=== PATIENT | female | born 1970 | race Caucasian/White ===

== ENCOUNTER 2016-05-16 18:52 | Emergency (ER) | payer SELFPAY ==
[~2016-05-16] VITALS: Ht 172.7 cm; Wt 68.5 kg
[~2016-05-16 18:52] MED LIST: METH10TA2 PO
[2016-05-16 19:24] VITALS: BP 135/70
--- NOTE | 2016-05-16 19:39 | PHYS DOC ---
Past Medical History Past Medical History: Other Additional Past Medical Histor: scoliosis Past Surgical History: Other Additional Past Surgical Histo: CROSURGERY Alcohol Use: None Drug Use: None Adult General Chief Complaint Chief Complaint: FOOT INJURY PAIN [facility] HPI Patient is a 45 year old female who presents emergency room with a complaint of left foot pain after getting her left foot caught under palate and falling. Patient states this happened approximately 3:30 or 4 PM this afternoon. Patient' s approximate 7 months . She denies having any abdominal pain, pelvic pain, vaginal bleeding or leakage of vaginal fluid. Patient denies any previous injuries to her left foot. She denies any history of bone forming disorders. Review of Systems Review of Systems Constitutional: Denies fever or chills [] Eyes: Denies change in visual acuity, redness, or eye pain [] HENT: Denies nasal congestion or sore throat [] Respiratory: Denies cough or shortness of breath [] Cardiovascular: No additional information not addressed in HPI [] GI: Denies abdominal pain, nausea, vomiting, bloody stools or diarrhea [] : Denies dysuria or hematuria [] Musculoskeletal: Denies back pain or joint pain [] Integument: Denies rash or skin lesions [] Neurologic: Denies headache, focal weakness or sensory changes [] Endocrine: Denies polyuria or polydipsia [] Allergies Allergies Allergies Coded Allergies Type Severity Reaction Last Updated Verified No Known Drug Allergies 04/06/14 No Physical Exam Physical Exam Constitutional: Well developed, well nourished, no acute distress, non-toxic appearance. [] HENT: Normocephalic, atraumatic, bilateral external ears normal, oropharynx moist, no oral exudates, nose normal. [] Eyes: PERRLA, EOMI, conjunctiva normal, no discharge. [] Neck: Normal range of motion, no tenderness, supple, no stridor. [] Cardiovascular:Heart rate regular rhythm, no murmur [] Lungs & Thorax: Bilateral breath sounds clear to auscultation [] Abdomen: Bowel sounds normal, soft, no tenderness, no masses, no pulsatile masses. [] Skin: Warm, dry, no erythema, no rash. [] Back: No tenderness, no CVA tenderness. [] Extremities: Left foot is normal in appearance. There is tenderness to palpation across the dorsum of the left foot approximately mid shaft of the metatarsals. There is no palpable defect, deformity, instability or crepitus. Foot is neurovascularly intact with capillary refill less than 2 seconds in the toes. Neurologic: Alert and oriented X 3, normal motor function, normal sensory function, no focal deficits noted. [] Psychologic: Affect normal, judgement normal, mood normal. [] Current Patient Data Vital Signs Vital Signs Date Time Temp Pulse Resp B/P Pulse Ox O2 Delivery O2 Flow Rate FiO2 05/16/16 19:24 98.1 94 20 135/70 100 Room Air 98.1 EKG EKG [] Radiology/Procedures Radiology/Procedures 3 views patient's left foot were performed with adequate technique. There is no evidence of acute bony injury. Course & Med Decision Making Course & Med Decision Making Pertinent Labs and Imaging studies reviewed. (See chart for details) [] Dragon Disclaimer Dragon Disclaimer This electronic medical record was generated, in whole or in part, using a voice recognition dictation system. Departure Departure Impression: Primary Impression: Contusion Disposition: 01 HOME, SELF-CARE Condition: GOOD Referrals: ANKUR RAYMOND (PCP) Patient Instructions: Contusion, [id number] Additional Instructions: 1. X-rays of your foot here today show no evidence of broken bones or dislocations. 2. You have a bruise and soft tissues in your foot. 3. Review the discharge instructions provided for self-care and reasons to return the emergency department. 4. Follow-up with your silverware etcher if you have any questions or concerns. BARRY CERNA May 16, 2016 19:39
--- NOTE | 2016-05-17 08:16 | RAD ---
EXAM: Left foot 3 views. HISTORY: Fall with left foot pain. COMPARISON: 08/29/2005. FINDINGS: No fractures are identified. Joint spaces and alignment are maintained. There is a small plantar calcaneal spur. IMPRESSION: 1. No fracture.
== END 2016-05-16 20:31 | disposition home or self-care (01) ==
LOC: ER 18:52
DX: O9A.211 Injury, poisoning and certain other consequences of external causes complicating pregnancy, first trimester (principal); S90.32XA Contusion of left foot, initial encounter; Z3A.01 Less than 8 weeks gestation of pregnancy; W23.0XXA Caught, crushed, jammed, or pinched between moving objects, initial encounter; Y93.89 Activity, other specified; Y99.8 Other external cause status; Y92.89 Other specified places as the place of occurrence of the external cause
CPT/HCPCS: 73630; 99284

== ENCOUNTER 2016-06-28 15:30 | Emergency (ER) | payer OTHER ==
[2016-06-28 15:57] VITALS: BP 113/71
[2016-06-28] MEDS ORDERED: HYDR-971 PO (16:28)
[2016-06-28] MEDS ORDERED: AMOX500C PO (16:28)
--- NOTE | 2016-06-28 16:29 | PHYS DOC ---
Past Medical History Past Medical History: Other Additional Past Medical Histor: scoliosis Past Surgical History: Other Additional Past Surgical Histo: CROSURGERY Alcohol Use: None Drug Use: None Adult General Chief Complaint Chief Complaint: DENTAL PROBLEM [facility] HPI Patient is a 45 year old female presents the emergency department stating that she has having left upper dental pain. She states that she's been having this pain for the last 2-3 weeks. She does have a tooth that appears to be decayed down into the gumline at the #14-15 area. The gumline appears to be very red and edematous. No drainage or discharge coming from the site. Patient denies any fever, chills or any nausea vomiting. Patient is 37 weeks . Patient does state that she has been using Orajel for the pain and discomfort which hasn 't been helping that is no longer relieving the pain Review of Systems Review of Systems Constitutional: Denies fever or chills [] Eyes: Denies change in visual acuity, redness, or eye pain [] HENT: Denies nasal congestion or sore throat. C/o dental pain Respiratory: Denies cough or shortness of breath [] Cardiovascular: No additional information not addressed in HPI [] GI: Denies abdominal pain, nausea, vomiting, bloody stools or diarrhea [] : Denies dysuria or hematuria [] Musculoskeletal: Denies back pain or joint pain [] Integument: Denies rash or skin lesions [] Neurologic: Denies headache, focal weakness or sensory changes [] Allergies Allergies Allergies Coded Allergies Type Severity Reaction Last Updated Verified No Known Drug Allergies 04/06/14 No Physical Exam Physical Exam Constitutional: Well developed, well nourished, no acute distress, non-toxic appearance. [] HENT: Normocephalic, atraumatic, bilateral external ears normal, oropharynx moist, no oral exudates, nose normal. Bilateral tympanic membranes appeared normal. Throat with no erythematous drainage or discharge noted. Patient appears to have redness and swelling noted around the number 14 to 15 tooth. No drainage or discharge noted. Eyes: PERRLA, EOMI, conjunctiva normal, no discharge. [] Neck: Normal range of motion, no tenderness, supple, no stridor. [] Cardiovascular:Heart rate regular rhythm, no murmur [] Lungs & Thorax: Bilateral breath sounds clear to auscultation [] Skin: Warm, dry, no erythema, no rash. [] Back: No tenderness Extremities: No tenderness, no cyanosis, no clubbing, ROM intact, no edema. [] Neurologic: Alert and oriented X 3, normal motor function, normal sensory function, no focal deficits noted. [] Psychologic: Affect normal, judgement normal, mood normal. [] Current Patient Data Vital Signs Vital Signs Date Time Temp Pulse Resp B/P Pulse Ox O2 Delivery O2 Flow Rate FiO2 06/28/16 15:57 98.2 104 20 98 Room Air 98.2 EKG EKG [] Radiology/Procedures Radiology/Procedures [] Course & Med Decision Making Course & Med Decision Making Pertinent Labs and Imaging studies reviewed. (See chart for details) Patient will be placed on amoxicillin 1 tablet 4 times a day. She'll also be placed on hydrocodone for severe pain and discomfort. Patient was also instructed to this medication very cautiously she is . She was also instructed that the medication will cause drowsiness do not take any be alert and oriented. Patient was also recommended to follow-up with the dentist within the next week. Patient agrees with discharge instructions treatment regimens and follow-up recommendations. Since symptoms to return back to emergency department been provided. [] Dragon Disclaimer Dragon Disclaimer This electronic medical record was generated, in whole or in part, using a voice recognition dictation system. Departure Departure Impression: Primary Impression: Pain, dental Additional Impression: Dental abscess Disposition: 01 HOME, SELF-CARE Condition: STABLE Referrals: ANKUR RAYMOND (PCP) Patient Instructions: Dental Abscess, Dental Pain, [id number] Additional Instructions: Activity as tolerated. Medication as prescribed. Take the hydrocodone sparingly as your . This medication will cause drowsiness do not take if you need to be alert and oriented. Warm salt water garlges 4 times a day Follow-up with the dentist as soon as possible. Return back to emergency prior signs symptoms of become worse. Scripts Hydrocodone/Apap 5-325 ([place] 5-325 Tablet)1 Each Tablet1 Tab PO PRN Q6HRS PRN PAIN #10 TAB Prov:JUAN DE PAZ PROPELLANT ASSEMBLER 06/28/16 Amoxicillin 500 Mg Capsule1 Cap PO QID #40 CAP Prov:JUAN DE PAZ PROPELLANT ASSEMBLER 4/19/17 Problem Qualifiers JUAN DE PAZ PROPELLANT ASSEMBLER Jun 28, 2016 16:29
== END 2016-06-28 16:44 | disposition home or self-care (01) ==
LOC: ER 15:30
DX: O26.893 Other specified pregnancy related conditions, third trimester (principal); K04.7 Periapical abscess without sinus; Z3A.37 37 weeks gestation of pregnancy
CPT/HCPCS: 99283

== ENCOUNTER 2016-07-01 15:18 | Emergency (ER) | payer OTHER ==
[~2016-07-01 15:18] MED LIST changes: +AMOX500C PO; +HYDR-971 PO
[2016-07-01 16:23] VITALS: BP 114/72
[2016-07-01] MEDS ORDERED: HYDR-971 PO (16:41)
--- NOTE | 2016-07-01 16:41 | PHYS DOC ---
Past Medical History Past Medical History: No Pertinent History Additional Past Medical Histor: scolosis Past Surgical History: No Surgical History Additional Past Surgical Histo: cryotherapy Additional Information: 03/13 ppd Alcohol Use: None Drug Use: None Adult General Chief Complaint Chief Complaint: DENTAL PROBLEM [facility] Patient is a 45 year old female who presents emergency Department today for ongoing dental pain. Patient was seen here 3 days ago for dental pain that been ongoing for approximately a week to week and a half. She was prescribed amoxicillin and [place] 5/325. She states she is continuing to take the amoxicillin. She states she is out of [place]. Patient states that she has an appointment with her field sales manager in 4 days. She states is not Dr. field sales manager or dentist since she was seen here 3 days ago. Patient is in her third trimester . She denies abdominal, pelvic pain, dysuria, hematuria, vaginal bleeding or vaginal discharge. Patient has a well-established history of chronic pain problems as she has been on methadone in the past. Review of Systems Review of Systems Constitutional: Denies fever or chills [] Eyes: Denies change in visual acuity, redness, or eye pain [] HENT: Denies nasal congestion or sore throat [] Respiratory: Denies cough or shortness of breath [] Cardiovascular: No additional information not addressed in HPI [] GI: Denies abdominal pain, nausea, vomiting, bloody stools or diarrhea [] : Denies dysuria or hematuria [] Musculoskeletal: Denies back pain or joint pain [] Integument: Denies rash or skin lesions [] Neurologic: Denies headache, focal weakness or sensory changes [] Endocrine: Denies polyuria or polydipsia [] Allergies Allergies Allergies Coded Allergies Type Severity Reaction Last Updated Verified No Known Drug Allergies 04/06/14 No Physical Exam Physical Exam Constitutional: Well developed, well nourished, no acute distress, non-toxic appearance. Patient is afebrile. HENT: Normocephalic, atraumatic, bilateral external ears normal, oropharynx moist, no oral exudates, nose normal. There is no trismus. There is widespread dental caries and very stages of decay with her remaining teeth the patient has. She has approximately two thirds of her teeth remaining. The area of concern is the second bicuspid and first molar of the left maxillary region. There is minimal gingival inflammation. There is no active purulent drainage or fluctuant pocket suggestive of abscesses. Eyes: PERRLA, EOMI, conjunctiva normal, no discharge. [] Neck: Normal range of motion, no tenderness, supple, no stridor. [] Cardiovascular:Heart rate regular rhythm, no murmur [] Lungs & Thorax: Bilateral breath sounds clear to auscultation [] Abdomen: Bowel sounds normal, soft, no tenderness, no masses, no pulsatile masses. [] Skin: Warm, dry, no erythema, no rash. [] Back: No tenderness, no CVA tenderness. [] Extremities: No tenderness, no cyanosis, no clubbing, ROM intact, no edema. [] Neurologic: Alert and oriented X 3, normal motor function, normal sensory function, no focal deficits noted. [] Psychologic: Affect normal, judgement normal, mood normal. [] Current Patient Data Vital Signs Vital Signs Date Time Temp Pulse Resp B/P Pulse Ox O2 Delivery O2 Flow Rate FiO2 07/01/16 16:23 97.8 99 16 99 Room Air 97.8 EKG EKG [] Radiology/Procedures Radiology/Procedures [] Course & Med Decision Making Course & Med Decision Making Pertinent Labs and Imaging studies reviewed. (See chart for details) [] Dragon Disclaimer Dragon Disclaimer This electronic medical record was generated, in whole or in part, using a voice recognition dictation system. Departure Departure Impression: Primary Impression: Pain, dental Disposition: HOME, SELF-CARE Condition: GOOD Referrals: ANKUR RAYMOND (PCP) Patient Instructions: Dental Pain, [id number] Additional Instructions: 1. Continue to take the amoxicillin as prescribed. Take the [place] for severe pain only. 2. Be sure to follow up with your field sales manager this coming Sunday as planned. Be sure to discuss your 2 visits to the emergency department for the ongoing dental pain. 3. Review the discharge instructions provided for self-care and reasons to return to the emergency department. 4. The dental resource sheet is provided to you for assistance in finding a dental clinic or dental school can best help take care of your dental pain. Scripts Hydrocodone/Apap 5-325 ([place] 5-325 Tablet)1 Each Tablet1 Tab PO PRN Q6HRS PRN PAIN #15 TAB Prov:BARRY CERNA 07/01/16 BARRY CERNA Jul 01, 2016 16:41
== END 2016-07-01 16:49 | disposition home or self-care (01) ==
LOC: ER 15:18
DX: O26.893 Other specified pregnancy related conditions, third trimester (principal); K08.89 Other specified disorders of teeth and supporting structures; G89.29 Other chronic pain; O99.333 Smoking (tobacco) complicating pregnancy, third trimester; Z3A.00 Weeks of gestation of pregnancy not specified
CPT/HCPCS: 99283

== ENCOUNTER 2016-07-23 22:34 | Emergency (ER) | payer OTHER ==
[~2016-07-23] VITALS: Ht 182.9 cm; Wt 69.9 kg
[2016-07-23 23:01] LABS: BILIRUBIN,URINE NEGATIVE (NEG); GLUCOSE,URINE NEGATIVE (NEG); NITRITE,URINE NEGATIVE (NEG); PH,URINE 6.5; PROTEIN,URINE NEGATIVE (NEG-TRACE); UROBILINOGEN,URINE 0.2 mg/dL (0.2 mg/dL)
[2016-07-23 23:10] LABS: BACTERIA,URINE MODERATE /HPF (0-FEW); SQUAMOUS EPITHELIAL CELL,UR MOD /LPF
[2016-07-23 23:34] LABS: BASO # 0.1 x10^3/uL (0.0-0.2); BASO % 2 % (0-3); EOS % 4 % (0-3); HEMATOCRIT 31.5 % (36.0-47.0); HEMOGLOBIN 10.8 g/dL (12.0-15.5); LYMPH # 2.2 x10^3/uL (1.0-4.8); LYMPH % 34 % (24-48); MEAN CORPUSCULAR HEMOGLOBIN 27 pg (25-35); MEAN CORPUSCULAR HGB CONC 34 g/dL (31-37); MEAN CORPUSCULAR VOLUME 79 fL (79-100); MONO % 7 % (0-9); NEUT % 53 % (31-73); PLATELET COUNT 268 x10^3/uL (140-400); RED BLOOD COUNT 4.01 x10^6/uL (3.50-5.40); RED CELL DISTRIBUTION WIDTH 19.4 % (11.5-14.5); WHITE BLOOD COUNT 6.4 x10^3/uL (4.0-11.0)
[2016-07-23 23:44] LABS: CALCIUM 9.4 mg/dL (8.5-10.1); CREATININE 0.7 mg/dL (0.6-1.0); GFR 91.3; POTASSIUM 3.4 mmol/L (3.5-5.1)
[2016-07-23 23:50] LABS: ALBUMIN 2.7 g/dL (3.4-5.0); ALBUMIN/GLOBULIN RATIO 0.8 (1.0-1.7); TOTAL BILIRUBIN 0.1 mg/dL (0.2-1.0); TOTAL PROTEIN 6.2 g/dL (6.4-8.2)
[2016-07-24] MEDS ORDERED: HYDROcodone/APAP 5/325MG 1 TAB TABLET PO ONE
[2016-07-24] MEDS ORDERED: POTASSIUM CHLORIDE 20 MEQ/15 ML ORAL LIQUID. PO ONE (00:30)
[2016-07-24 00:45] VITALS: BP 116/64
[2016-07-24] MEDS ORDERED: CIPR500T PO (00:56)
[2016-07-24] MEDS ORDERED: HYDR-971 PO (00:56)
--- NOTE | 2016-07-24 00:56 | PHYS DOC ---
Past Medical History Past Medical History: Other Additional Past Medical Histor: scolIosis Past Surgical History: No Surgical History Additional Past Surgical Histo: cryotherapy Alcohol Use: None Drug Use: None Adult General Chief Complaint Chief Complaint: MULTIPLE COMPLAINTS HPI HPI Patient is a 45 year old female who presents with back pain & lower extremity swelling. She reports 5 day history of lower back pain, progressive increase in edema bilaterally over the past 3 days. She reports history of chronic back pain & scoliosis, denies recent falls, denies bowel/bladder incontinence/ retention, lower extremity numbness/weakness, saddle anesthesia. She denies calf pain or skin changes to lower extremities, denies chest pain or shortness of breath. Denies fevers/chills, headache, abdominal pain, vomiting, dysuria/ hematuria, reports decreased vaginal bleeding. She is 5 days s/p vaginal delivery by Dr. Pete at [facility]. She reports uneventful , full term induced delivery, no complications. She drank a red bull before she came to the hospital tonight. She was taking norco after hospital discharge but ran out. Review of Systems Review of Systems Constitutional: Denies fever or chills Eyes: Denies change in visual acuity HENT: Denies nasal congestion or sore throat Respiratory: Denies cough or shortness of breath Cardiovascular: Denies chest pain, reports edema GI: Denies abdominal pain, nausea, vomiting, or diarrhea : Denies dysuria or hematuria Musculoskeletal: Reports back pain, denies joint pain Integument: Denies rash or skin lesions Neurologic: Denies headache, focal weakness or sensory changes Current Medications Current Medications Current Medications Medications (Trade) Dose Ordered Sig/Nikhil Start Time Stop Time Status Last Admin Dose Admin Acetaminophen/ Hydrocodone Bitart (Lortab 5/325) 2 tab 1X ONCE 07/24/16 00:00 07/24/16 00:01 DC 07/23/16 23:48 2 TAB Ceftriaxone Sodium 50 ml @ 100 mls/hr 1X ONCE 07/24/16 00:00 07/24/16 00:29 DC 07/23/16 23:48 100 MLS/HR Potassium Chloride (KCl Oral Soln) 40 meq 1X ONCE 07/24/16 00:30 07/24/16 00:31 DC 07/24/16 00:57 40 MEQ Allergies Allergies Allergies Coded Allergies Type Severity Reaction Last Updated Verified No Known Drug Allergies 04/06/14 No Physical Exam Physical Exam Constitutional: Well developed, well nourished, no acute distress, non-toxic appearance. HENT: Normocephalic, atraumatic, bilateral external ears normal, oropharynx moist, nose normal. Eyes: conjunctiva normal, no discharge. Neck: supple, no stridor. Cardiovascular: RRR, no murmurs Lungs & Thorax: LCTAB, no wheezing, no respiratory distress. Abdomen: soft, nontender, no masses or pulsatile masses, nondistended. Skin: Warm, dry, no erythema, no rash. Back: generalized lower back tenderness without CVA tenderness, sacral tenderness present. Extremities: No tenderness, 2+ pitting edema symmetrically to bilateral lower extremities, no calf tenderness, no erythema or warmth Neurologic: Alert and oriented X 3, no focal deficits noted. Psychologic: Affect normal, judgement normal, mood normal. Current Patient Data Vital Signs Vital Signs Date Time Temp Pulse Resp B/P (MAP) Pulse Ox O2 Delivery O2 Flow Rate FiO2 07/24/16 00:45 78 16 116/64 (81) 96 Room Air 07/23/16 22:56 97.9 97.9 Lab Values Laboratory Tests Test 07/23/16 22:40 07/23/16 23:25 Urine Collection Type Unknown Urine Color Yellow Urine Clarity Clear Urine pH 6.5 Urine Specific [place] 1.020 Urine Protein Negative mg/dL (NEG-TRACE) Urine Glucose (UA) Negative mg/dL (NEG) Urine Ketones (Stick) Negative mg/dL (NEG) Urine Blood Large (NEG) Urine Nitrite Negative (NEG) Urine Bilirubin Negative (NEG) Urine Urobilinogen Dipstick 0.2 mg/dL (0.2 mg/dL) Urine Leukocyte Esterase Large (NEG) Urine RBC 6-10 /HPF (0-2) Urine WBC 11-20 /HPF (0-4) Urine Squamous Epithelial Cells Mod /LPF Urine Bacteria Moderate /HPF (0-FEW) Urine Mucus Slight /LPF White Blood Count 6.4 x10^3/uL (4.0-11.0) Red Blood Count 4.01 x10^6/uL (3.50-5.40) Hemoglobin 10.8 g/dL (12.0-15.5) L Hematocrit 31.5 % (36.0-47.0) L Mean Corpuscular Volume 79 fL (79-100) Mean Corpuscular Hemoglobin 27 pg (25-35) Mean Corpuscular Hemoglobin Concent 34 g/dL (31-37) Red Cell Distribution Width 19.4 % (11.5-14.5) H Platelet Count 268 x10^3/uL (140-400) Neutrophils (%) (Auto) 53 % (31-73) Lymphocytes (%) (Auto) 34 % (24-48) Monocytes (%) (Auto) 7 % (0-9) Eosinophils (%) (Auto) 4 % (0-3) H Basophils (%) (Auto) 2 % (0-3) Neutrophils # (Auto) 3.4 x10^3uL (1.8-7.7) Lymphocytes # (Auto) 2.2 x10^3/uL (1.0-4.8) Monocytes # (Auto) 0.5 x10^3/uL (0.0-1.1) Eosinophils # (Auto) 0.2 x10^3/uL (0.0-0.7) Basophils # (Auto) 0.1 x10^3/uL (0.0-0.2) Prothrombin Time 13.0 SEC (11.7-14.0) Prothrombin Time INR 1.0 (0.8-1.1) PTT 28 SEC (24-38) Sodium Level 141 mmol/L (136-145) Potassium Level 3.4 mmol/L (3.5-5.1) L Chloride Level 105 mmol/L (98-107) Carbon Dioxide Level 25 mmol/L (21-32) Anion Gap 11 (6-14) Blood Urea Nitrogen 15 mg/dL (7-20) Creatinine 0.7 mg/dL (0.6-1.0) Estimated GFR (Cockcroft-Gault) 91.3 BUN/Creatinine Ratio 21 (6-20) H Glucose Level 113 mg/dL (70-99) H Calcium Level 9.4 mg/dL (8.5-10.1) Total Bilirubin 0.1 mg/dL (0.2-1.0) L Aspartate Amino Transferase (AST) 23 U/L (15-37) Alanine Aminotransferase (ALT) 27 U/L (14-59) Alkaline Phosphatase 90 U/L (46-116) Total Protein 6.2 g/dL (6.4-8.2) L Albumin 2.7 g/dL (3.4-5.0) L Albumin/Globulin Ratio 0.8 (1.0-1.7) L Laboratory Tests 07/23/16 23:25 Laboratory Tests 07/23/16 23:25 EKG EKG [] Radiology/Procedures Radiology/Procedures [] Course & Med Decision Making Course & Med Decision Making Pertinent Labs and Imaging studies reviewed. (See chart for details) Patient presents with lower extremity edema and back pain. She states the back pain is typical of her chronic pain and she just ran out of pain medication. No red flag symptoms present. Her pain improved with [place] here. She does have bilateral lower extremity edema, symptoms not suggesting DVT at this time although certainly she is at risk with recent delivery. Otherwise no symptoms of preeclampsia. Blood pressure was initially elevated upon arrival, possibly due to recent ingestion of energy drink. Improved with repeat measurements here and she had no recurrence of hypertension. She was found to have urinary tract infection. With lower back pain will give treatment for 7 days with Cipro. Recommended to elevate her legs. I attempted to contact Dr. Pete, her OB doctor, but did not receive a call back. Discussed at length with the patient possible concerning causes of swelling including preeclampsia and DVT. Encouraged her to call OB clinic in the morning to schedule an appointment within 2 days. Return to the emergency department for severe headache, vision changes, unilateral calf pain or worsening swelling, chest pain, shortness of breath, high fever, severe abdominal pain or flank pain, uncontrolled vomiting, any otherwise worsening condition. Discharged home today in stable condition. [] Dragon Disclaimer Dragon Disclaimer This electronic medical record was generated, in whole or in part, using a voice recognition dictation system. Departure Departure Impression: Primary Impression: Urinary tract infection Additional Impressions: Back pain Edema Disposition: 01 HOME, SELF-CARE Condition: STABLE Referrals: ANKUR PETE (PCP) Patient Instructions: Back Pain, Adult, [id number], Edema, [id number], Urinary Tract Infection, [id number] Additional Instructions: You were seen in the emergency department today for leg swelling and back pain. You have a urinary tract infection. Please take the prescribed antibiotic and drink fluids to stay hydrated. Take pain medication as needed. No drinking alcohol or driving while taking this medication. Keep legs elevated to reduce swelling. Your blood pressure was elevated initially when he arrived, and improved on recheck here. It is very important to see your OB doctor this week as high blood pressure can indicate serious problems shortly after delivering a baby. Please make an appointment within 2 days. Return to the emergency department for severe headache, chest pain, difficulty breathing, increased leg swelling or calf pain, high fever, uncontrolled vomiting, severe abdominal pain or back pain, any otherwise worsening condition. Scripts Hydrocodone/Apap 5-325 (NORCO 5-325 TABLET) 1 Each Tablet 1 TAB PO PRN Q6HRS Y for PAIN, #10 TAB 0 Refills Prov: JUSTINE FLOYD MD 07/24/16 Ciprofloxacin Hcl (CIPROFLOXACIN HCL) 500 Mg Tablet 1 TAB PO BID, #14 TAB Prov: JUSTINE FLOYD MD 07/24/16 Problem Qualifiers JUSTINE FLOYD MD July 24, 2016 00:56
== END 2016-07-24 01:13 | disposition home or self-care (01) ==
LOC: ER 22:34
DX: N39.0 Urinary tract infection, site not specified (principal); R60.9 Edema, unspecified; M54.5 Low back pain; M41.9 Scoliosis, unspecified
CPT/HCPCS: 36415; 80053; 81001; 85027; 85610; 85730; 87086; 96365; 99284; J0690

== ENCOUNTER 2016-08-05 22:38 | Emergency (ER) | payer OTHER ==
[~2016-08-05] VITALS: Ht 172.7 cm; Wt 69.9 kg
[~2016-08-05 22:38] MED LIST changes: +CIPR500T PO
[2016-08-05 22:45] VITALS: BP 142/86
[2016-08-05 23:11] LABS: BILIRUBIN,URINE NEGATIVE (NEG); GLUCOSE,URINE NEGATIVE (NEG); NITRITE,URINE NEGATIVE (NEG); PROTEIN,URINE NEGATIVE (NEG-TRACE); UROBILINOGEN,URINE 0.2 mg/dL (0.2 mg/dL)
--- NOTE | 2016-08-05 23:13 | PHYS DOC ---
Past Medical History Past Medical History: Other Additional Past Medical Histor: scolIosis Past Surgical History: No Surgical History Additional Past Surgical Histo: cryotherapy Additional Information: 0.5 PPD Alcohol Use: None Drug Use: None Adult General Chief Complaint Chief Complaint: PAIN CONTROL [facility] HPI Patient is a 45 year old female who presents with complaint of low back pain. Patient states she has history of chronic low back pain. Patient has had multiple visits to the emergency department for similar symptoms. Patient states that her symptoms became exacerbated over the past 2 days. The patient states that she has been taking hydrocodone and ibuprofen for her pain. Patient states that she took her last hydrocodone earlier this morning. Patient states that her pain is currently 8 out of 10. Patient states that the pain worsens with movement. Patient denies radiation of pain into her left lower extremities. Patient denies loss of bowel or bladder control and denies loss of feeling in her groin. Review of Systems Review of Systems Constitutional: Denies fever or chills [] Eyes: Denies change in visual acuity, redness, or eye pain [] HENT: Denies nasal congestion or sore throat [] Respiratory: Denies cough or shortness of breath [] Cardiovascular: No additional information not addressed in HPI [] GI: Denies abdominal pain, nausea, vomiting, bloody stools or diarrhea [] : Denies dysuria or hematuria [] Musculoskeletal: Back pain [] Integument: Denies rash or skin lesions [] Neurologic: Denies headache, focal weakness or sensory changes [] Current Medications Current Medications Current Medications Medications (Trade) Dose Ordered Sig/Nikhil Start Time Stop Time Status Last Admin Dose Admin Acetaminophen/ Hydrocodone Bitart (Lortab 7.5/325) 1 tab 1X ONCE 08/05/16 23:15 08/05/16 23:16 DC 08/05/16 23:08 1 TAB Cyclobenzaprine HCl (Flexeril) 10 mg 1X ONCE 08/05/16 23:15 08/05/16 23:16 DC 08/05/16 23:08 10 MG Ibuprofen (Motrin) 800 mg 1X ONCE 08/05/16 23:15 08/05/16 23:16 DC 08/05/16 23:07 800 MG Allergies Allergies Allergies Coded Allergies Type Severity Reaction Last Updated Verified No Known Drug Allergies 04/06/14 No Physical Exam Physical Exam Constitutional: Alert, afebrile, appears in mild to moderate discomfort. [] HENT: Normocephalic, atraumatic, bilateral external ears normal, oropharynx moist, no oral exudates, nose normal. [] Eyes: PERRLA, EOMI, conjunctiva normal, no discharge. [] Neck: Normal range of motion, no tenderness, supple, no stridor. [] Cardiovascular:Heart rate regular rhythm, no murmur [] Lungs & Thorax: Bilateral breath sounds clear to auscultation [] Abdomen: Bowel sounds normal, soft, no tenderness, no masses, no pulsatile masses. [] Skin: Warm, dry, no erythema, no rash. [] Back: Bilateral lower lumbar paraspinous muscle tenderness to palpation, no midline tenderness, no flank ecchymosis. [] Extremities: No tenderness, no cyanosis, no clubbing, ROM intact, no edema. [] Neurologic: Alert and oriented X 3, normal motor function, normal sensory function, no focal deficits noted. [] Current Patient Data Vital Signs Vital Signs Date Time Temp Pulse Resp B/P (MAP) Pulse Ox O2 Delivery O2 Flow Rate FiO2 08/05/16 23:08 18 100 Room Air 08/05/16 22:45 98.0 78 98.0 Lab Values Laboratory Tests Test 08/05/16 22:55 Urine Collection Type Unknown Urine Color Yellow Urine Clarity Clear Urine pH 7.0 Urine Specific [place] 1.015 Urine Protein Negative mg/dL (NEG-TRACE) Urine Glucose (UA) Negative mg/dL (NEG) Urine Ketones (Stick) Negative mg/dL (NEG) Urine Blood Large (NEG) Urine Nitrite Negative (NEG) Urine Bilirubin Negative (NEG) Urine Urobilinogen Dipstick 0.2 mg/dL (0.2 mg/dL) Urine Leukocyte Esterase Large (NEG) Urine RBC >40 /HPF (0-2) Urine WBC 11-20 /HPF (0-4) Urine Squamous Epithelial Cells Few /LPF Urine Bacteria Few /HPF (0-FEW) EKG EKG Not performed [] Radiology/Procedures Radiology/Procedures Not performed [] Course & Med Decision Making Course & Med Decision Making Pertinent Labs and Imaging studies reviewed. (See chart for details) The patient was given hydrocodone, Flexeril, and ibuprofen in the emergency department. After speaking with the patient, I explained that due to multiple prescriptions being written in the past month for hydrocodone from the emergency department, I would not be able to write any further prescriptions until the patient has been seen by her primary doctor. Due to the presence of chronic back pain, I am providing referral for the patient to see Dr. Elliot Brayn of the pain management clinic and recommended follow-up in the next 1-2 weeks. Advised patient to return to emergency department for any worsening symptoms. Patient voiced understanding and in agreement with treatment plan. Dragon Disclaimer Dragon Disclaimer This electronic medical record was generated, in whole or in part, using a voice recognition dictation system. Departure Departure Impression: Primary Impression: Acute exacerbation of chronic low back pain Disposition: HOME, SELF-CARE Condition: IMPROVED Referrals: ANKUR RAYMOND (PCP) ELLIOT BRYAN MD Patient Instructions: Chronic Back Pain Additional Instructions: Follow-up with your primary doctor in 1 week. It is recommended that you schedule follow-up with Dr. Elliot Bryan of the pain management clinic in 1-2 weeks for further evaluation and treatment of your chronic back pain. Return to the emergency department for any worsening symptoms. Scripts Cyclobenzaprine Hcl (CYCLOBENZAPRINE HCL) 10 Mg Tablet 1 TAB PO TID Y for MUSCLE PAIN, #30 TAB Prov: KULDEEP LAI MD 08/05/16 KULDEEP LAI MD August 05, 2016 23:13
[2016-08-05] MEDS ORDERED: CYCLOBENZAPRINE 10 MG TABLET. PO ONE (23:15)
[2016-08-05] MEDS ORDERED: HYDROcodone/APAP 7.5/325MG 1 TAB TABLET PO ONE (23:15)
[2016-08-05] MEDS ORDERED: IBUPROFEN 800 MG TABLET. PO ONE (23:15)
[2016-08-05 23:20] LABS: BACTERIA,URINE FEW /HPF (0-FEW); RBC,URINE >40 /HPF (0-2); SQUAMOUS EPITHELIAL CELL,UR FEW /LPF
[2016-08-05] MEDS ORDERED: CYCL10TA2 PO (23:51)
== END 2016-08-05 23:53 | disposition home or self-care (01) ==
LOC: ER 22:42
DX: G89.29 Other chronic pain (principal); M54.5 Low back pain; M41.9 Scoliosis, unspecified; F17.200 Nicotine dependence, unspecified, uncomplicated
CPT/HCPCS: 81001; 87086; 99284

== ENCOUNTER 2017-01-28 22:44 | Emergency (ER) | payer SELFPAY ==
[~2017-01-28] VITALS: Ht 172.7 cm; Wt 60.8 kg
[~2017-01-28 22:44] MED LIST changes: +CYCL10TA2 PO
[2017-01-29] MEDS ORDERED: IV NORMAL SALINE 1000ML BAG 1,000 ML IV ONE (00:30)
[2017-01-29 00:34] LABS: BILIRUBIN,URINE NEGATIVE (NEG); GLUCOSE,URINE NEGATIVE (NEG); NITRITE,URINE NEGATIVE (NEG); PROTEIN,URINE NEGATIVE (NEG-TRACE); UROBILINOGEN,URINE 0.2 mg/dL (0.2 mg/dL)
[2017-01-29 00:35] LABS: BASO # 0.1 x10^3/uL (0.0-0.2); BASO % 1 % (0-3); EOS % 5 % (0-3); HEMATOCRIT 40.2 % (36.0-47.0); HEMOGLOBIN 13.1 g/dL (12.0-15.5); LYMPH # 2.7 x10^3/uL (1.0-4.8); LYMPH % 44 % (24-48); MEAN CORPUSCULAR HEMOGLOBIN 27 pg (25-35); MEAN CORPUSCULAR HGB CONC 33 g/dL (31-37); MEAN CORPUSCULAR VOLUME 83 fL (79-100); MONO % 9 % (0-9); NEUT % 42 % (31-73); PLATELET COUNT 293 x10^3/uL (140-400); RED BLOOD COUNT 4.87 x10^6/uL (3.50-5.40); RED CELL DISTRIBUTION WIDTH 15.4 % (11.5-14.5); WHITE BLOOD COUNT 6.2 x10^3/uL (4.0-11.0)
[2017-01-29 00:41] LABS: CALCIUM 9.4 mg/dL (8.5-10.1); CREATININE 0.9 mg/dL (0.6-1.0); POTASSIUM 3.3 mmol/L (3.5-5.1)
[2017-01-29 00:43] LABS: BACTERIA,URINE FEW /HPF (0-FEW); SQUAMOUS EPITHELIAL CELL,UR MOD /LPF
[2017-01-29 00:47] LABS: ALBUMIN/GLOBULIN RATIO 1.1 (1.0-1.7); TOTAL BILIRUBIN 0.2 mg/dL (0.2-1.0); TOTAL PROTEIN 7.7 g/dL (6.4-8.2)
[2017-01-29 01:32] VITALS: BP 137/73
--- NOTE | 2017-01-29 01:41 | PHYS DOC ---
Past Medical History Past Medical History: Other Additional Past Medical Histor: scolIosis Past Surgical History: No Surgical History Additional Past Surgical Histo: cryotherapy Alcohol Use: None Drug Use: None Adult General Chief Complaint Chief Complaint: MULTIPLE COMPLAINTS HPI HPI Patient is a 46 year old female who presents here today with multiple complaints including generalized shaking, trembling, feeling dizzy, patient reports the symptom and on since Sunday. She reports that occurred today between 2 PM and 5 PM but is currently asymptomatic. She reports yesterday she had the symptoms associated nausea and vomiting. Patient reports that she has a history significant for anxiety no hypertension diabetes lung liver or kidney problems. Patient allergic medications. Patient reports she smokes no alcohol or drugs. Patient reports she drinks approximately 3 cans red blood which is baseline be contributing to it. Patient reports that she finished work at around 7 PM and started feeling some discomfort to her right neck area was concerned came to the ER. Patient denies any exertional component to the discomfort to her jaw. Patient has any radiating pain. Patient has any shortness of breath or diaphoresis. Patient is currently a symptomatically. Review of systems: Constitutional: Denies fever or chills Eyes: Denies change in visual acuity, redness, or eye pain HENT: Denies nasal congestion or sore throat Respiratory: Denies cough or shortness of breath All other systems were reviewed and found to be within normal limits, except as documented in this note. Physical exam: Constitutional: Well developed, well nourished, no acute distress, non-toxic appearance. HENT: Normocephalic,bilateral external ears normal, oropharynx moist, no oral exudates, nose normal. Eyes: PERRLA, EOMI, conjunctiva normal, no discharge. Neck: Normal range of motion, no tenderness, supple, no stridor. Cardiovascular:Heart rate regular rhythm, no murmur Lungs & Thorax: Bilateral breath sounds clear to auscultation Abdomen: Bowel sounds normal, soft, no tenderness, no masses, no pulsatile masses. Skin: Warm, dry, no erythema, no rash. Back: No tenderness, no CVA tenderness. Extremities: No tenderness, no cyanosis, no clubbing, ROM intact, no edema. Neurologic: Alert and oriented X 3, normal motor function, normal sensory function, no focal deficits noted. Psychologic: Affect normal, judgement normal, mood normal. EKG: Normal sinus rhythm at a heart rate of [address]-T wave abnormalities. No evidence of STEMI. As interpreted by ER physician. X-ray: Normal heart size, no infiltrates or effusions, as interpreted by ER physician. He, CMP, troponin, UA all within normal limits. Assessment and plan: 46-year-old female who presents here today with multiple vague complaints including generalized shaking trembling dizziness and been intermittent since Sunday. Patient reports she drinks. Patient thinks that this might be contributing to her sensation of anxiety. Patient's ER workup is been unremarkable for any acute pathology including NV, PE, pneumonia, diabetes, infection. Patient be discharged home in stable condition given her ER workup is been normal. Patient's EKG chest x-ray been normal. Patient's CBC CMP troponin been within normal limits. Reports also been discussed with the patient as well as plan to discharge her to home. Current Medications Current Medications Current Medications Medications (Trade) Dose Ordered Sig/Nikhil Start Time Stop Time Status Last Admin Dose Admin Sodium Chloride 1,000 ml @ 1,000 mls/hr 1X ONCE 01/29/17 00:30 01/29/17 01:29 DC 01/29/17 00:36 1,000 MLS/HR Allergies Allergies Allergies Coded Allergies Type Severity Reaction Last Updated Verified No Known Drug Allergies 04/06/14 No Current Patient Data Vital Signs Vital Signs Date Time Temp Pulse Resp B/P (MAP) Pulse Ox O2 Delivery O2 Flow Rate FiO2 01/29/17 01:02 99 18 135/83 (100) 98 Room Air 01/28/17 23:00 98.1 98.1 Lab Values Laboratory Tests Test 01/28/17 23:45 01/29/17 00:05 POC Urine HCG, Qualitative Hcg negative (Negative) White Blood Count 6.2 x10^3/uL (4.0-11.0) Red Blood Count 4.87 x10^6/uL (3.50-5.40) Hemoglobin 13.1 g/dL (12.0-15.5) Hematocrit 40.2 % (36.0-47.0) Mean Corpuscular Volume 83 fL (79-100) Mean Corpuscular Hemoglobin 27 pg (25-35) Mean Corpuscular Hemoglobin Concent 33 g/dL (31-37) Red Cell Distribution Width 15.4 % (11.5-14.5) H Platelet Count 293 x10^3/uL (140-400) Neutrophils (%) (Auto) 42 % (31-73) Lymphocytes (%) (Auto) 44 % (24-48) Monocytes (%) (Auto) 9 % (0-9) Eosinophils (%) (Auto) 5 % (0-3) H Basophils (%) (Auto) 1 % (0-3) Neutrophils # (Auto) 2.6 x10^3uL (1.8-7.7) Lymphocytes # (Auto) 2.7 x10^3/uL (1.0-4.8) Monocytes # (Auto) 0.5 x10^3/uL (0.0-1.1) Eosinophils # (Auto) 0.3 x10^3/uL (0.0-0.7) Basophils # (Auto) 0.1 x10^3/uL (0.0-0.2) Urine Collection Type Unknown Urine Color Yellow Urine Clarity Clear Urine pH 7.0 Urine Specific [place] 1.015 Urine Protein Negative mg/dL (NEG-TRACE) Urine Glucose (UA) Negative mg/dL (NEG) Urine Ketones (Stick) Negative mg/dL (NEG) Urine Blood Small (NEG) Urine Nitrite Negative (NEG) Urine Bilirubin Negative (NEG) Urine Urobilinogen Dipstick 0.2 mg/dL (0.2 mg/dL) Urine Leukocyte Esterase Negative (NEG) Urine RBC 1-2 /HPF (0-2) Urine WBC 1-4 /HPF (0-4) Urine Squamous Epithelial Cells Mod /LPF Urine Bacteria Few /HPF (0-FEW) Urine Mucus Slight /LPF Sodium Level 141 mmol/L (136-145) Potassium Level 3.3 mmol/L (3.5-5.1) L Chloride Level 102 mmol/L (98-107) Carbon Dioxide Level 30 mmol/L (21-32) Anion Gap 9 (6-14) Blood Urea Nitrogen 13 mg/dL (7-20) Creatinine 0.9 mg/dL (0.6-1.0) Estimated GFR (Cockcroft-Gault) 68.0 BUN/Creatinine Ratio 14 (6-20) Glucose Level 88 mg/dL (70-99) Calcium Level 9.4 mg/dL (8.5-10.1) Total Bilirubin 0.2 mg/dL (0.2-1.0) Aspartate Amino Transferase (AST) 23 U/L (15-37) Alanine Aminotransferase (ALT) 27 U/L (14-59) Alkaline Phosphatase 51 U/L (46-116) Troponin I Quantitative < 0.017 ng/mL (0.000-0.055) Total Protein 7.7 g/dL (6.4-8.2) Albumin 4.0 g/dL (3.4-5.0) Albumin/Globulin Ratio 1.1 (1.0-1.7) Laboratory Tests 01/29/17 00:05 Laboratory Tests 01/29/17 00:05 EKG EKG [] Radiology/Procedures Radiology/Procedures [] Course & Med Decision Making Course & Med Decision Making Pertinent Labs and Imaging studies reviewed. (See chart for details) [] Dragon Disclaimer Dragon Disclaimer This electronic medical record was generated, in whole or in part, using a voice recognition dictation system. Departure Departure Impression: Primary Impression: Dizziness Additional Impression: Anxiety Disposition: 01 HOME, SELF-CARE Condition: IMPROVED Referrals: NO PCP (PCP) Patient Instructions: Anxiety and Panic Attacks, Palpitations Problem Qualifiers BETINA MONSIVAIS MD Jan 29, 2017 01:41
--- NOTE | 2017-01-29 06:08 | EKG ---
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
--- NOTE | 2017-01-29 08:14 | RAD ---
EXAM: Chest 2 views. HISTORY: Dizziness. COMPARISON: 06/07/2014. FINDINGS: Frontal and lateral views of the chest are obtained. Hyperinflation is consistent with chronic obstructive pulmonary disease. There is mild atelectasis or scarring in the bases. There is no pneumothorax or pleural effusion. The heart is not enlarged. There is a mild to moderate S-shaped thoracic scoliosis. A chronic left posterior inferior rib fractures noted. IMPRESSION: 1. Chronic obstructive pulmonary disease. No confluent infiltrates.
== END 2017-01-29 01:45 | disposition home or self-care (01) ==
LOC: ER 22:44
DX: R42 Dizziness and giddiness (principal); F41.9 Anxiety disorder, unspecified; R11.2 Nausea with vomiting, unspecified; J44.9 Chronic obstructive pulmonary disease, unspecified
CPT/HCPCS: 36415; 71020; 80053; 81001; 81025; 84484; 85025; 93005; 96360; 99285; J7030

== ENCOUNTER 2017-07-04 09:39 | Emergency (ER) | payer OTHER | END 2017-07-04 10:19 | disposition home or self-care (01) | LOC: ER 09:39 | DX: S06.0X0A Concussion without loss of consciousness, initial encounter (principal); S90.31XA Contusion of right foot, initial encounter; W18.09XA Striking against other object with subsequent fall, initial encounter; Y93.89 Activity, other specified; Y99.8 Other external cause status; Y92.89 Other specified places as the place of occurrence of the external cause | CPT/HCPCS: 99281 ==

== ENCOUNTER 2017-09-21 10:57 | Emergency (ER) | payer SELFPAY, OTHER ==
[2017-09-21 11:17] LABS: URINE HCG POC HCG POSITIVE (Negative)
[2017-09-21 11:44] LABS: ADD MAN DIFF? NO
[2017-09-21 11:46] LABS: BASO # 0.1 x10^3/uL (0.0-0.2); BASO % 1 % (0-3); EOS # 0.1 x10^3/uL (0.0-0.7); EOS % 1 % (0-3); HEMATOCRIT 34.8 % (36.0-47.0); HEMOGLOBIN 11.6 g/dL (12.0-15.5); LYMPH # 2.3 x10^3/uL (1.0-4.8); LYMPH % 28 % (24-48); MEAN CORPUSCULAR HEMOGLOBIN 26 pg (25-35); MEAN CORPUSCULAR HGB CONC 33 g/dL (31-37); MEAN CORPUSCULAR VOLUME 77 fL (79-100); MONO # 0.5 x10^3/uL (0.0-1.1); MONO % 7 % (0-9); NEUT % 62 % (31-73); PLATELET COUNT 283 x10^3/uL (140-400); RED BLOOD COUNT 4.51 x10^6/uL (3.50-5.40); RED CELL DISTRIBUTION WIDTH 16.5 % (11.5-14.5)
[2017-09-21 11:52] LABS: BILIRUBIN,URINE NEGATIVE (NEG); COLOR,URINE YELLOW; GLUCOSE,URINE NEGATIVE (NEG); NITRITE,URINE NEGATIVE (NEG); PROTEIN,URINE NEGATIVE (NEG-TRACE); UROBILINOGEN,URINE 0.2 mg/dL (0.2 mg/dL)
[2017-09-21 11:54] LABS: ANION GAP 8 (6-14); BLOOD UREA NITROGEN 10 mg/dL (7-20); BUN/CREATININE RATIO 10 (6-20); CALCIUM 8.4 mg/dL (8.5-10.1); CARBON DIOXIDE 28 mmol/L (21-32); CHLORIDE 106 mmol/L (98-107); GLUCOSE 87 mg/dL (70-99); SODIUM 142 mmol/L (136-145)
[2017-09-21 11:59] LABS: ALBUMIN 3.5 g/dL (3.4-5.0); ALBUMIN/GLOBULIN RATIO 1.1 (1.0-1.7); ALK PHOS 46 U/L (46-116); ALT (SGPT) 24 U/L (14-59); AST (SGOT) 16 U/L (15-37); TOTAL BILIRUBIN 0.2 mg/dL (0.2-1.0); TOTAL PROTEIN 6.6 g/dL (6.4-8.2)
[2017-09-21 12:04] LABS: BACTERIA,URINE FEW /HPF (0-FEW); RBC,URINE OCC /HPF (0-2); SQUAMOUS EPITHELIAL CELL,UR MOD /LPF; WBC,URINE >40 /HPF (0-4)
[2017-09-21 12:05] LABS: CLARITY,URINE HAZY
[2017-09-21] MEDS: ACETAMINOPHEN 500 MG TABLET PO (13:00)
== END 2017-09-21 13:02 | disposition home or self-care (01) ==
LOC: ER 10:57
DX: O23.41 Unspecified infection of urinary tract in pregnancy, first trimester (principal); O20.8 Other hemorrhage in early pregnancy; Z3A.01 Less than 8 weeks gestation of pregnancy
CPT/HCPCS: 36415; 76801; 76817; 80053; 81001; 81025; 84702; 85025; 87086; 99285-25

== ENCOUNTER 2017-10-13 01:22 | Emergency (ER) | payer OTHER | END 2017-10-13 02:10 | disposition left against medical advice (07) | LOC: ER 02:10 | DX: L02.01 Cutaneous abscess of face (principal) ==

== ENCOUNTER 2017-10-13 15:41 | Emergency (ER) | payer OTHER | END 2017-10-13 16:31 | disposition home or self-care (01) | LOC: ER 16:31 | DX: O26.891 Other specified pregnancy related conditions, first trimester (principal); O99.711 Diseases of the skin and subcutaneous tissue complicating pregnancy, first trimester (principal); K04.7 Periapical abscess without sinus; Z3A.09 9 weeks gestation of pregnancy | CPT/HCPCS: 99283 ==

== ENCOUNTER 2017-10-29 14:03 | Emergency (ER) | payer OTHER ==
[~2017-10-29] VITALS: Ht 172.7 cm; Wt 61.7 kg
[~2017-10-29 14:03] MED LIST changes: +ACET-704 PO; +AMOX875T PO; +SULF1TAB24 PO
[2017-10-29 14:55] LABS: BILIRUBIN,URINE NEGATIVE (NEG); CLARITY,URINE CLEAR; COLOR,URINE YELLOW; NITRITE,URINE NEGATIVE (NEG); PROTEIN,URINE NEGATIVE (NEG-TRACE); UROBILINOGEN,URINE 0.2 mg/dL (0.2 mg/dL)
[2017-10-29 15:01] LABS: BACTERIA,URINE 0 /HPF (0-FEW); RBC,URINE 0 /HPF (0-2); SQUAMOUS EPITHELIAL CELL,UR MOD /LPF; WBC,URINE 0 /HPF (0-4)
--- NOTE | 2017-10-29 17:33 | RAD ---
Indication:spotting . Vaginal bleeding in . TECHNIQUE: Grayscale, color Doppler and spectral waveform images of the pelvis obtained. COMPARISON: Previous ultrasound from 09/21/2017 FINDINGS: The uterus measures 8.1 x 4.7 x 6.1 cm (longitudinal, AP, transverse). Elongated anechoic lesion is seen in the upper endometrium measuring 1.8 x 0.6 x 0.9 cm. Cervix is closed. No endometrial vascularity. The endometrial thickness measures 9 mm. The left ovary measures 1.5 x 1.7 x 2.5 cm with a 1.5 x 1.3 x 1.3 cm anechoic lesion. Left ovary demonstrates evidence of blood flow. Left parametrial collaterals are seen. The right kidney measures 2.1 x 1.8 x 1.8 cm and demonstrates evidence of blood flow. IMPRESSION: 1. Anechoic structure in the upper endometrium may represent an abnormal shaped gestation sac or small amount of endometrial cavity fluid. If this structure represents a gestation sac than the estimated gestation age is approximately 5 weeks 6 days but should be 11 weeks 6 day from prior ultrasound. Follow-up ultrasound recommended. 2. Bilateral ovaries demonstrate evidence of blood flow with left ovarian lesion likely corpus luteal cyst of . Differential diagnoses includes failed first trimester , ectopic or complete spontaneous . Correlate with beta-hCG. Electronically signed by: Dick Broderick DO (10/29/2017 5:29 PM) [facility]
[2017-10-29] MEDS ORDERED: HYDR-971 PO (17:57)
--- NOTE | 2017-10-29 17:59 | PHYS DOC ---
Past Medical History Past Medical History: Other Additional Past Medical Histor: SCOLIOSIS Past Surgical History: Other Additional Past Surgical Histo: CRYOTHERAPY Alcohol Use: None Drug Use: None Adult General Chief Complaint Chief Complaint: VAGINAL BLEEDING HPI HPI Patient is a 47 year old [f__sex] who presents with [] Review of Systems Review of Systems Constitutional: Denies fever or chills [] Eyes: Denies change in visual acuity, redness, or eye pain [] HENT: Denies nasal congestion or sore throat [] Respiratory: Denies cough or shortness of breath [] Cardiovascular: No additional information not addressed in HPI [] GI: Denies abdominal pain, nausea, vomiting, bloody stools or diarrhea [] : Denies dysuria or hematuria [] Musculoskeletal: Denies back pain or joint pain [] Integument: Denies rash or skin lesions [] Neurologic: Denies headache, focal weakness or sensory changes [] Endocrine: Denies polyuria or polydipsia [] All other systems were reviewed and found to be within normal limits, except as documented in this note. Allergies Allergies Allergies Coded Allergies Type Severity Reaction Last Updated Verified No Known Drug Allergies 04/06/14 No Physical Exam Physical Exam Constitutional: Well developed, well nourished, no acute distress, non-toxic appearance. [] HENT: Normocephalic, atraumatic, bilateral external ears normal, oropharynx moist, no oral exudates, nose normal. [] Eyes: PERRLA, EOMI, conjunctiva normal, no discharge. [] Neck: Normal range of motion, no tenderness, supple, no stridor. [] Cardiovascular:Heart rate regular rhythm, no murmur [] Lungs & Thorax: Bilateral breath sounds clear to auscultation [] Abdomen: Bowel sounds normal, soft, no tenderness, no masses, no pulsatile masses. [] Skin: Warm, dry, no erythema, no rash. [] Back: No tenderness, no CVA tenderness. [] Extremities: No tenderness, no cyanosis, no clubbing, ROM intact, no edema. [] Neurologic: Alert and oriented X 3, normal motor function, normal sensory function, no focal deficits noted. [] Psychologic: Affect normal, judgement normal, mood normal. [] Current Patient Data Vital Signs Vital Signs Date Time Temp Pulse Resp B/P (MAP) Pulse Ox O2 Delivery O2 Flow Rate FiO2 10/29/17 16:25 80 18 114/75 (88) 97 10/29/17 14:40 98.6 Room Air 98.6 Lab Values Laboratory Tests Test 10/29/17 14:43 10/29/17 14:46 10/29/17 16:10 Urine Collection Type Unknown Urine Color Yellow Urine Clarity Clear Urine pH 7.0 Urine Specific [place] 1.010 Urine Protein Negative mg/dL (NEG-TRACE) Urine Glucose (UA) Negative mg/dL (NEG) Urine Ketones (Stick) Negative mg/dL (NEG) Urine Blood Trace (NEG) Urine Nitrite Negative (NEG) Urine Bilirubin Negative (NEG) Urine Urobilinogen Dipstick 0.2 mg/dL (0.2 mg/dL) Urine Leukocyte Esterase Negative (NEG) Urine RBC 0 /HPF (0-2) Urine WBC 0 /HPF (0-4) Urine Squamous Epithelial Cells Mod /LPF Urine Bacteria 0 /HPF (0-FEW) POC Urine HCG, Qualitative Hcg positive (Negative) Maternal Serum HCG Beta Subunit 1914 mIU/mL (0-5) H EKG EKG [] Radiology/Procedures Radiology/Procedures [] Course & Med Decision Making Course & Med Decision Making Pertinent Labs and Imaging studies reviewed. (See chart for details) [] Dragon Disclaimer Dragon Disclaimer This electronic medical record was generated, in whole or in part, using a voice recognition dictation system. 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 If worsening with pelvic pain, abdominal pain, fever or vaginal discharge return to the emergency department. Take the medication as directed. Do not drive or operate heavy machinery while taking this medication. Scripts Hydrocodone/Apap 5-325 (NORCO 5-325 TABLET) 1 Each Tablet 1 TAB PO PRN Q6HRS PRN for PAIN, #10 TAB 0 Refills Prov: LALITA JACOB APRN 10/29/17 LALITA JACOB APRN Oct 29, 2017 17:59
[2017-10-29 18:10] VITALS: BP 119/85
== END 2017-10-29 18:10 | disposition home or self-care (01) ==
LOC: ER 14:03
DX: O03.9 Complete or unspecified spontaneous abortion without complication (principal)
CPT/HCPCS: 36415; 76801; 76817; 81001; 81025; 84702; 99285-25

== ENCOUNTER → 2017-10-31 | Outpatient (CLI) | payer OTHER ==
[2017-10-29 18:10] VITALS: BP 119/85
== END | disposition home or self-care (01) ==
LOC: LAB 14:25
PROVIDERS: ATTEND Obstetrics & Gynecology
DX: O20.0 Threatened abortion (principal); F41.9 Anxiety disorder, unspecified
CPT/HCPCS: 36415; 84144; 84702

== ENCOUNTER 2017-11-04 22:57 | Emergency (ER) | payer OTHER ==
[~2017-11-04] VITALS: Ht 172.7 cm; Wt 60.8 kg
[2017-11-04 23:15] VITALS: BP 148/89
[2017-11-04 23:42] LABS: BASO % 0 % (0-3); EOS # 0.2 x10^3/uL (0.0-0.7); EOS % 3 % (0-3); HEMATOCRIT 37.6 % (36.0-47.0); HEMOGLOBIN 12.6 g/dL (12.0-15.5); LYMPH # 2.9 x10^3/uL (1.0-4.8); LYMPH % 41 % (24-48); MEAN CORPUSCULAR HEMOGLOBIN 26 pg (25-35); MEAN CORPUSCULAR HGB CONC 33 g/dL (31-37); MEAN CORPUSCULAR VOLUME 77 fL (79-100); MONO # 0.6 x10^3/uL (0.0-1.1); MONO % 9 % (0-9); NEUT # 3.3 x10^3uL (1.8-7.7); NEUT % 47 % (31-73); PLATELET COUNT 274 x10^3/uL (140-400); RED CELL DISTRIBUTION WIDTH 16.6 % (11.5-14.5)
[2017-11-05 00:22] LABS: BILIRUBIN,URINE NEGATIVE (NEG); CLARITY,URINE CLEAR; COLOR,URINE YELLOW; NITRITE,URINE NEGATIVE (NEG); PROTEIN,URINE NEGATIVE (NEG-TRACE); UROBILINOGEN,URINE 0.2 mg/dL (0.2 mg/dL)
[2017-11-05 00:34] LABS: BACTERIA,URINE FEW /HPF (0-FEW); RBC,URINE OCC /HPF (0-2); SQUAMOUS EPITHELIAL CELL,UR MOD /LPF
[2017-11-05] MEDS ORDERED: HYDR-971 PO (00:42)
[2017-11-05] MEDS ORDERED: NAPR500T8 PO (00:42)
--- NOTE | 2017-11-05 01:07 | PHYS DOC ---
Past Medical History Past Medical History: Other Additional Past Medical Histor: SCOLIOSIS Past Surgical History: Other Additional Past Surgical Histo: CRYOTHERAPY Alcohol Use: None Drug Use: None Adult General Chief Complaint Chief Complaint: FEVER HPI HPI Patient is a 47 year old female who presents with chills. The patient is known to be . She has been followed with multiple emergency department visits over the last several weeks for likely miscarriage. She presents to the ER today complaining of some chills. She is uncertain if she had a fever because she did not check her temperature. She also has some ongoing or abdominal cramping. She had a very scant amount of bleeding earlier that she describes to be spotting. Review of electronic medical record reveals multiple ER visits for this complaint over the last 3 weeks. She has documented declining quantitative hCGs. She last had an ultrasound one week earlier that showed and an anechoic structure in the uterus but not inappropriate fetus for her hCG. She has follow-up already scheduled with her primary revolving field assembler in 2 days. Review of Systems Review of Systems Constitutional: Denies fever Eyes: Denies change in visual acuity HENT: Denies nasal congestion Respiratory: Denies cough Cardiovascular: No additional information not addressed in HPI GI: Denies abdominal pain : Denies dysuria or hematuria Musculoskeletal: Denies back pain Integument: Denies rash Neurologic: Denies headache Endocrine: Denies polyuria All other systems were reviewed and found to be within normal limits, except as documented in this note. Allergies Allergies Allergies Coded Allergies Type Severity Reaction Last Updated Verified No Known Drug Allergies 04/06/14 No Physical Exam Physical Exam Constitutional: Well developed, well nourished, no acute distress, non-toxic appearance HENT: Normocephalic, atraumatic, bilateral external ears normal, oropharynx moist Eyes: PERRLA, EOMI, conjunctiva normal, no discharge Neck: Normal range of motion, no tenderness Cardiovascular:Heart rate regular rhythm Lungs & Thorax: Bilateral breath sounds clear to auscultation Abdomen: Bowel sounds normal, soft, no tenderness Skin: Warm, dry, no erythema, no rash Neurologic: Alert and oriented X 3 Psychologic: Affect normal Current Patient Data Vital Signs Vital Signs Date Time Temp Pulse Resp B/P (MAP) Pulse Ox O2 Delivery O2 Flow Rate FiO2 11/04/17 23:15 98.8 97 20 148/89 (108) 98 Room Air 98.8 Lab Values Laboratory Tests Test 11/04/17 23:30 11/05/17 00:15 White Blood Count 7.0 x10^3/uL (4.0-11.0) Red Blood Count 4.90 x10^6/uL (3.50-5.40) Hemoglobin 12.6 g/dL (12.0-15.5) Hematocrit 37.6 % (36.0-47.0) Mean Corpuscular Volume 77 fL (79-100) L Mean Corpuscular Hemoglobin 26 pg (25-35) Mean Corpuscular Hemoglobin Concent 33 g/dL (31-37) Red Cell Distribution Width 16.6 % (11.5-14.5) H Platelet Count 274 x10^3/uL (140-400) Neutrophils (%) (Auto) 47 % (31-73) Lymphocytes (%) (Auto) 41 % (24-48) Monocytes (%) (Auto) 9 % (0-9) Eosinophils (%) (Auto) 3 % (0-3) Basophils (%) (Auto) 0 % (0-3) Neutrophils # (Auto) 3.3 x10^3uL (1.8-7.7) Lymphocytes # (Auto) 2.9 x10^3/uL (1.0-4.8) Monocytes # (Auto) 0.6 x10^3/uL (0.0-1.1) Eosinophils # (Auto) 0.2 x10^3/uL (0.0-0.7) Basophils # (Auto) 0.0 x10^3/uL (0.0-0.2) Maternal Serum HCG Beta Subunit 795 mIU/mL (0-5) H Urine Collection Type Unknown Urine Color Yellow Urine Clarity Clear Urine pH 6.0 Urine Specific [place] 1.010 Urine Protein Negative mg/dL (NEG-TRACE) Urine Glucose (UA) Negative mg/dL (NEG) Urine Ketones (Stick) Negative mg/dL (NEG) Urine Blood Small (NEG) Urine Nitrite Negative (NEG) Urine Bilirubin Negative (NEG) Urine Urobilinogen Dipstick 0.2 mg/dL (0.2 mg/dL) Urine Leukocyte Esterase Negative (NEG) Urine RBC Occ /HPF (0-2) Urine WBC 1-4 /HPF (0-4) Urine Squamous Epithelial Cells Mod /LPF Urine Bacteria Few /HPF (0-FEW) Urine Mucus Slight /LPF Laboratory Tests 11/04/17 23:30 EKG EKG [] Radiology/Procedures Radiology/Procedures [] Course & Med Decision Making Course & Med Decision Making Pertinent Labs and Imaging studies reviewed. (See chart for details) Patient was evaluated in the ER for probable miscarriage. Her quantitative hCG was decreasing even from the last visit 6 days earlier. Her ultrasound was not significantly changed from the previous. She had no papa bleeding and no severe pain or cramps. The patient has a negative blood type. She states that she already received RhoGAM during this during an earlier visit at [facility]. None additional given this evening. White blood cell count was not elevated. Urinalysis does not reveal signs of infectious process. Patient is nontoxic in appearance. Plan is for discharge home and she is provided reassurance. She is advised about pelvic rest. She will follow up with her primary revolving field assembler 2 days from now or return to the ER for any new or worsening symptoms. She is provided naproxen and [place] for pain control. Dragon Disclaimer Dragon Disclaimer This electronic medical record was generated, in whole or in part, using a voice recognition dictation system. Departure Departure Impression: Primary Impression: Miscarriage Disposition: 01 HOME, SELF-CARE Condition: GOOD Referrals: SHERRI DORADO MD Patient Instructions: Miscarriage, Fooc-xw-Zago Scripts Hydrocodone/Apap 5-325 (NORCO 5-325 TABLET) 1 Each Tablet 1-2 EACH PO PRN Q6HRS PRN for severe pain, #10 as needed for pain Prov: ELLIOT MARTIN DO 11/05/17 Naproxen (NAPROXEN) 500 Mg Tablet. 1 TAB PO BID, #30 TAB 2 Refills Prov: ELLIOT MARTIN DO 11/05/17 ELLIOT MARTIN DO Nov 05, 2017 01:07
--- NOTE | 2017-11-05 01:09 | RAD ---
OB < 14 WKS Clinical Indication: SPOTTING, FEVER CHILLS PT HAVING MISCARRIAGE HCG QUANT 11-04-17 795. Quantitative beta hCG is declining. Comparison: Obstetric ultrasound, October 29, 2017. TECHNIQUE: Real-time ultrasound imaging of the pelvis using transabdominal and transvaginal window is performed. Findings: Anteverted uterus. There is abnormally shaped elongated gestational sac versus fluid in the endometrial canal. Given the declining quantitative beta hCG the latter is favored. There are no internal contents. No focal abnormality of the uterus. Right ovary functional cyst measures up to 1.7 cm. There is normal blood flow in the maternal ovaries. Small left ovarian follicle. No pelvic free fluid is appreciated. IMPRESSION: Irregular elongated cystic structure in the endometrial canal may be abnormal gestational sac versus fluid in the endometrial canal. There are no internal contents. Findings suspicious for failed first trimester . Electronically signed by: Steve Jameson MD (11/05/2017 1:05 AM) [facility]
== END 2017-11-05 00:52 | disposition home or self-care (01) ==
LOC: ER 22:57
DX: O03.9 Complete or unspecified spontaneous abortion without complication (principal); Z3A.00 Weeks of gestation of pregnancy not specified
CPT/HCPCS: 36415; 76801; 81001; 84702; 85025; 99285-25

== ENCOUNTER 2017-12-31 18:40 | Emergency (ER) | payer BC, OTHER ==
[~2017-12-31] VITALS: Ht 172.7 cm; Wt 61.2 kg
[~2017-12-31 18:40] MED LIST changes: +NAPR500T8 PO
[2017-12-31 21:45] LABS: BASO # 0.1 x10^3/uL (0.0-0.2); BASO % 1 % (0-3); EOS # 0.2 x10^3/uL (0.0-0.7); EOS % 3 % (0-3); HEMATOCRIT 38.8 % (36.0-47.0); HEMOGLOBIN 12.9 g/dL (12.0-15.5); LYMPH # 2.1 x10^3/uL (1.0-4.8); LYMPH % 35 % (24-48); MEAN CORPUSCULAR HEMOGLOBIN 26 pg (25-35); MEAN CORPUSCULAR HGB CONC 33 g/dL (31-37); MEAN CORPUSCULAR VOLUME 80 fL (79-100); MONO # 0.5 x10^3/uL (0.0-1.1); MONO % 8 % (0-9); NEUT # 3.1 x10^3uL (1.8-7.7); NEUT % 52 % (31-73); PLATELET COUNT 292 x10^3/uL (140-400); RED BLOOD COUNT 4.88 x10^6/uL (3.50-5.40); RED CELL DISTRIBUTION WIDTH 17.1 % (11.5-14.5)
[2017-12-31 21:56] LABS: CALCIUM 9.7 mg/dL (8.5-10.1); CREATININE 0.9 mg/dL (0.6-1.0); GFR 67.7; POTASSIUM 4.2 mmol/L (3.5-5.1)
[2017-12-31 21:57] LABS: BARBITURATES NEG (NEG); BENZODIAZEPINES NEG (NEG); CANNABINOIDS NEG (NEG); COCAINE NEG (NEG); METHADONE NEG (NEG); OPIATES POS (NEG); PHENCYCLIDINE NEG (NEG)
[2017-12-31 22:03] LABS: AMPHETAMINE/METHAMPHETAMINE NEG (NEG)
[2017-12-31 22:12] VITALS: BP 117/69
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
--- NOTE | 2017-12-31 22:32 | EKG ---
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
--- NOTE | 2017-12-31 23:39 | RAD ---
Indication:CHEST PAIN, ANXIETY, NAUSEA X1 DAY TECHNIQUE:PA and lateral views of the chest COMPARISON: 01/29 FINDINGS: Heart is normal in size. Lungs are clear. Scattered calcified granuloma. No pneumothorax or pleural effusion. Mild S-shaped scoliosis of the thoracolumbar spine. IMPRESSION: No acute pulmonary process. Electronically signed by: Dick Broderick DO (12/31/2017 11:36 PM) [facility]
== END 2017-12-31 23:35 | disposition left against medical advice (07) ==
LOC: ER 18:40
DX: F41.9 Anxiety disorder, unspecified (principal); R07.89 Other chest pain; R68.84 Jaw pain
CPT/HCPCS: 36415; 71046; 80048; 80307; 84484; 85025; 93005; 96374; 99285; J2060; G0479

== ENCOUNTER 2018-02-13 15:17 | Emergency (ER) | payer BC, OTHER ==
[~2018-02-13] VITALS: Ht 172.7 cm; Wt 61.2 kg
[~2018-02-13 15:17] MED LIST changes: +HYDR-3164 PO; -HYDR-971 PO
[2018-02-13 15:29] VITALS: BP 141/79
[2018-02-13] MEDS ORDERED: NAPR-514 PO (15:50)
[2018-02-13] MEDS ORDERED: ORPH100T PO (15:50)
--- NOTE | 2018-02-13 15:51 | PHYS DOC ---
Past Medical History Past Medical History: Anxiety, Sciatica, Other Additional Past Medical Histor: SCOLIOSIS Past Surgical History: Other Additional Past Surgical Histo: CRYOTHERAPY Smoking: Cigarettes, Less than 1pk/day Alcohol Use: None Drug Use: None Adult General Chief Complaint Chief Complaint: OTHER COMPLAINTS HPI HPI Patient is a 47 year old female who presents to the emergency department with complaints of pain in her left buttock that radiates laterally down her left leg with movement at times. Patient states that the pain first began 2 months ago, she denies any known injury or fall. She states she has seemed to other doctors for evaluation of the same pain. Last week she was prescribed hydrocodone by the doctor that she saw that the hydrocodone does not seem to be helping her pain. Patient denies any saddle anesthesia, loss of bowel or bladder control, or weakness of the affected extremity. She states that she drove herself to the emergency Department today. Review of Systems Review of Systems Constitutional: Denies fever or chills [] Musculoskeletal: See HPI Neurologic: Denies headache, focal weakness or sensory changes [] All other systems were reviewed and found to be within normal limits, except as documented in this note. Allergies Allergies Allergies Coded Allergies Type Severity Reaction Last Updated Verified No Known Drug Allergies 04/06/14 No Physical Exam Physical Exam Constitutional: Well developed, well nourished, no acute distress, non-toxic appearance. [] HENT: Normocephalic, atraumatic, bilateral external ears normal, nose normal. [] Eyes: conjunctiva normal, no discharge. [] Neck: Normal range of motion, Skin: Warm, dry, no erythema, no rash. [] Back: No bony tenderness, straight leg test of LLE positive Extremities: No cyanosis, no clubbing, ROM intact, no edema. [] Neurologic: Alert and oriented X 3, normal motor function, normal sensory function, no focal deficits noted. [] Psychologic: Affect normal, judgement normal, mood normal. [] Current Patient Data Vital Signs Vital Signs Date Time Temp Pulse Resp B/P (MAP) Pulse Ox O2 Delivery O2 Flow Rate FiO2 02/13/18 15:29 97.4 92 18 141/79 (99) 98 Room Air 97.4 EKG EKG [] Radiology/Procedures Radiology/Procedures [] Course & Med Decision Making Course & Med Decision Making Pertinent Labs and Imaging studies reviewed. (See chart for details) Dx: Sciatica prescriptions for norflex and naproxen written. Stretching exercises provided. Follow up with PCP for further evaluation, return to ER if symptoms worsen. Patient verbalized an understanding of home care, medications, follow-up, and return to ED instructions and was in agreement with the plan of care. [] Dragon Disclaimer Dragon Disclaimer This electronic medical record was generated, in whole or in part, using a voice recognition dictation system. Departure Departure Impression: Primary Impression: Sciatica of left side Disposition: HOME, SELF-CARE Condition: STABLE Referrals: NO PCP (PCP) Patient Instructions: Sciatica with [facility] Additional Instructions: Fill prescriptions and use as directed. Perform the stretches provided in your discharge instructions. Follow-up with your primary care doctor if symptoms persist. Return to the emergency room if symptoms worsen. Scripts Orphenadrine Citrate (ORPHENADRINE CITRATE) 100 Mg Tablet.er 100 MG PO BID PRN for PAIN for 10 Days, #20 TAB.SR 0 Refills Prov: KENJI NOGUEIRA LOAD MANAGER 02/13/18 Naproxen (NAPROXEN) 500 Mg Tablet 500 MG PO BID PRN for PAIN for 10 Days, #20 TAB 0 Refills Prov: KENJI NOGUEIRA LOAD MANAGER 02/13/18 KENJI NOGUEIRA LOAD MANAGER Feb 13, 2018 15:50
== END 2018-02-13 15:58 | disposition home or self-care (01) ==
LOC: ER 15:17
DX: M54.32 Sciatica, left side (principal); F41.9 Anxiety disorder, unspecified; F17.210 Nicotine dependence, cigarettes, uncomplicated
CPT/HCPCS: 99283

== ENCOUNTER 2018-02-24 15:44 | Emergency (ER) | payer BC, OTHER ==
[~2018-02-24] VITALS: Ht 172.7 cm; Wt 61.2 kg
[~2018-02-24 15:44] MED LIST changes: +NAPR-514 PO; +ORPH100T PO
[2018-02-24 15:45] VITALS: BP 129/79
[2018-02-24] MEDS ORDERED: NAPROXEN 500 MG TABLET PO STA (15:59)
[2018-02-24] MEDS ORDERED: CYCLOBENZAPRINE 10 MG TABLET. PO ONE (16:00)
[2018-02-24] MEDS ORDERED: HYDROcodone/APAP 5/325MG 1 TAB TABLET PO ONE (16:00)
--- NOTE | 2018-02-24 16:17 | PHYS DOC ---
Past Medical History Past Medical History: Anxiety, Sciatica, Other Additional Past Medical Histor: SCOLIOSIS Past Surgical History: Other Additional Past Surgical Histo: CRYOTHERAPY Alcohol Use: None Drug Use: None Adult General Chief Complaint Chief Complaint: LOWER BACK PAIN OR INJURY HPI HPI Patient is a 47 year old female with a history of anxiety, sciatica, who presents today complaining of 8 out of 10 bilateral low back pain radiating to the left lower extremity that began yesterday after she fell. Patient states she was moving some items and accidentally fell. Denies any loss of consciousness. She states her pain is worse on ambulation. She states she tried tramadol with no relief. Denies any loss of bowel bladder function. Denies any numbness or tingling to bilateral lower extremities. Review of Systems Review of Systems Constitutional: Denies fever or chills [] GI: Denies abdominal pain, nausea, vomiting, bloody stools or diarrhea [] : Denies dysuria or hematuria [] Musculoskeletal: Reports low back pain Integument: Denies rash or skin lesions [] Neurologic: Denies headache, focal weakness or sensory changes [] All other systems were reviewed and found to be within normal limits, except as documented in this note. Current Medications Current Medications Current Medications Medications (Trade) Dose Ordered Sig/Nikhil Start Time Stop Time Status Last Admin Dose Admin Acetaminophen/ Hydrocodone Bitart (Lortab 5/325) 2 tab 1X ONCE 02/24/18 16:00 02/24/18 16:01 DC 02/24/18 16:18 2 TAB Cyclobenzaprine HCl (Flexeril) 10 mg 1X ONCE 02/24/18 16:00 02/24/18 16:01 DC 02/24/18 16:17 10 MG Naproxen (Naprosyn) 500 mg 1X STAT 02/24/18 15:59 02/24/18 16:01 DC 02/24/18 16:18 500 MG Allergies Allergies Allergies Coded Allergies Type Severity Reaction Last Updated Verified No Known Drug Allergies 04/06/14 No Physical Exam Physical Exam Constitutional: Well developed, well nourished, no acute distress, non-toxic appearance. [] Skin: Warm, dry, no erythema, no rash. [] Back: Diffuse paraspinal muscle tenderness to bilateral lumbar spine, no midline lumbar spine tenderness, no CVA tenderness. Positive straight leg raise to the left lower extremity Extremities: No tenderness, no cyanosis, no clubbing, ROM intact, no edema. [] Neurologic: Alert and oriented X 3, normal motor function, normal sensory function, no focal deficits noted. [] Psychologic: Affect normal, judgement normal, mood normal. [] Current Patient Data Vital Signs Vital Signs Date Time Temp Pulse Resp B/P (MAP) Pulse Ox O2 Delivery O2 Flow Rate FiO2 02/24/18 15:45 97.8 98 18 129/79 (96) 99 Room Air 97.8 EKG EKG [] Radiology/Procedures Radiology/Procedures []PROCEDURE: LUMBAR SPINE 2-3V Lumbar spine radiograph 02/24/2018 INDICATION: Low back pain. COMPARISON: None available TECHNIQUE: 3 views lumbosacral spine are provided. FINDINGS: There is levoconvex scoliosis of the lumbar spine. [place] levocurvature is identified at L1-L2. There is minimal anterolisthesis of L4 on L5. Vertebral body heights are maintained. No acute fracture is identified. Mild to moderate facet arthropathy is noted in the lower lumbar spine. Sacrum appears intact. Sacral abhay are intact. Mildly prominent small bowel loop is identified in the left upper quadrant measuring up to 2.5 cm. Nonobstructive bowel gas pattern. IMPRESSION: Levoconvex scoliosis of the lumbar spine with minimal anterolisthesis of L4 on L5. No acute fracture. Electronically signed by: Leon Hightower MD (02/24/2018 4:18 PM) [facility] DICTATED and SIGNED BY: LEON HIGHTOWER MD DATE: 02/24/18 1617 Course & Med Decision Making Course & Med Decision Making Pertinent Labs and Imaging studies reviewed. (See chart for details) This is a 47-year-old female patient presenting to the ED today with low back pain status post falling yesterday. No cauda equina syndrome symptoms. No loss of consciousness. Lumbar spine x-rays interpreted by radiologist are negative for any acute findings. K-tracs shows patient received 120 tablets of tramadol on 02/14/2018. Encouraged to continue taking it as needed for pain. Follow-up with her own doctor in the course of this week, she states she has an appointment tomorrow. Dragon Disclaimer Dragon Disclaimer This electronic medical record was generated, in whole or in part, using a voice recognition dictation system. Departure Departure Impression: Primary Impression: Sciatica of left side Additional Impressions: Fall from standing Lumbar contusion Disposition: HOME, SELF-CARE Condition: STABLE Referrals: NO PCP (PCP) Follow-up tomorrow as scheduled Patient Instructions: Back Pain, Adult, Contusion, [id number], Fall Prevention and Home Safety, Sciatica Additional Instructions: You were evaluated in the emergency room for low back pain after falling. Your lumbar spine x-rays were negative for any acute findings. Continue following up with your own doctor as scheduled tomorrow. Continue taking tramadol at home as needed for pain. Come back to the ED at any point symptoms worsen. Problem Qualifiers Additional Impressions: Fall from standing Encounter type: initial encounter Qualified Codes: W19.XXXA - Unspecified fall, initial encounter Lumbar contusion Encounter type: initial encounter Qualified Codes: S30.0XXA - Contusion of lower back and pelvis, initial encounter RASHID PRESTON APRN Feb 24, 2018 16:17
--- NOTE | 2018-02-24 16:22 | RAD ---
Lumbar spine radiograph 02/24/2018 INDICATION: Low back pain. COMPARISON: None available TECHNIQUE: 3 views lumbosacral spine are provided. FINDINGS: There is levoconvex scoliosis of the lumbar spine. [place] levocurvature is identified at L1-L2. There is minimal anterolisthesis of L4 on L5. Vertebral body heights are maintained. No acute fracture is identified. Mild to moderate facet arthropathy is noted in the lower lumbar spine. Sacrum appears intact. Sacral abhay are intact. Mildly prominent small bowel loop is identified in the left upper quadrant measuring up to 2.5 cm. Nonobstructive bowel gas pattern. IMPRESSION: Levoconvex scoliosis of the lumbar spine with minimal anterolisthesis of L4 on L5. No acute fracture. Electronically signed by: Aminata Hightower MD (02/24/2018 4:18 PM) [facility]
== END 2018-02-24 16:48 | disposition home or self-care (01) ==
LOC: ER 15:44
DX: S30.0XXA Contusion of lower back and pelvis, initial encounter (principal); W18.39XA Other fall on same level, initial encounter; Y93.89 Activity, other specified; Y92.89 Other specified places as the place of occurrence of the external cause; Y99.8 Other external cause status
CPT/HCPCS: 72100; 99284

== ENCOUNTER 2018-04-02 17:47 | Emergency (ER) | payer BC, OTHER | END 2018-04-02 19:05 | disposition left against medical advice (07) | LOC: ER 17:47 | DX: S61.511A Laceration without foreign body of right wrist, initial encounter (principal); Z53.21 Procedure and treatment not carried out due to patient leaving prior to being seen by health care provider; Y28.8XXA Contact with other sharp object, undetermined intent, initial encounter; Y93.89 Activity, other specified; Y92.89 Other specified places as the place of occurrence of the external cause; Y99.8 Other external cause status ==

== ENCOUNTER → 2018-07-24 | Outpatient (CLI) | payer BC, OTHER ==
--- NOTE | 2018-07-24 14:48 | KCIC ---
Three-view lumbar spine dated 07/24/2018. Comparison made to 02/24/2018. Clinical data indication: Back pain. FINDINGS: Standing lateral and flexion-extension lateral views were obtained. Grade 1 anterolisthesis of L4 on L5 with no significant change on the flexion-extension views. Sagittal alignment is otherwise anatomic. Vertebral body heights are maintained. Mild endplate hypertrophic changes throughout. Mild arthrosis lower lumbar apophyseal joints. IMPRESSION: 1. Grade 1 anterolisthesis of L4 on L5 with no evidence of instability on the flexion-extension views. 2. Mild lower lumbar spondylosis. Electronically signed by: Dustin Jay MD (07/24/2018 2:45 PM) [facility]
== END | disposition home or self-care (01) ==
LOC: KCIC 14:10
PROVIDERS: ATTEND Neurological Surgery
DX: M43.10 Spondylolisthesis, site unspecified (principal); M47.896 Other spondylosis, lumbar region
CPT/HCPCS: 72100

== ENCOUNTER 2018-07-28 15:11 | Emergency (ER) | payer BC, OTHER ==
[~2018-07-28] VITALS: Ht 172.7 cm; Wt 61.2 kg
[2018-07-28 15:50] VITALS: BP 130/80
[2018-07-28] MEDS ORDERED: CYCL10TA2 PO (16:18)
--- NOTE | 2018-07-28 16:19 | PHYS DOC ---
Past Medical History Past Medical History: Anxiety, Sciatica, Other Additional Past Medical Histor: SCOLIOSIS Past Surgical History: Other Additional Past Surgical Histo: CRYOTHERAPY Alcohol Use: None Drug Use: None Adult General Chief Complaint Chief Complaint: DENTAL PROBLEM HPI HPI Patient is a 47 year old [f] who presents with [1 week history of lower jaw discomfort. Patient reports she has bilateral discomfort only to lower jaw. Denies recent trauma. Does report she has a lot of increased stress at home recently. Does not know if she has a history of clenching her teeth at night. Patient states pain seems to be worse in the morning. She does take ibuprofen f or this with minimal relief. States she does have a history of a lot of dental issues and she was concerned she may have an infection in her jaw. Denies recent fever. Does state she recently got dental insurance and she will make a dental appointment soon because she know she has a lot of dental issues.] Review of Systems Review of Systems Constitutional: Denies fever or chills [] HENT: Denies nasal congestion or sore throat [] GI: Denies abdominal pain, nausea, vomiting, bloody stools or diarrhea [] : Denies dysuria or hematuria [] Musculoskeletal: Denies back pain or joint pain [] Integument: Denies rash or skin lesions [] Neurologic: Denies headache, focal weakness or sensory changes [] All other systems were reviewed and found to be within normal limits, except as documented in this note. Allergies Allergies Allergies Coded Allergies Type Severity Reaction Last Updated Verified No Known Drug Allergies 04/06/14 No Physical Exam Physical Exam Constitutional: Well developed, well nourished, no acute distress, non-toxic appearance. [] HENT: Normocephalic, atraumatic, bilateral external ears normal, oropharynx moist, no oral exudates, nose normal. [No significant lower mandible gum recession. No masses no abscess no fluctuance noted. No erythema noted to the gums. Lower dentition appears intact without noted caries. Upper dentition noted teeth missing with caries posteriorly. Patient able to open and close jaw move ment laterally unassisted without noted discomfort. No clicks noted on opening and closing. TMJ feels intact. Patient able to speak without difficulty.] Eyes: PERRLA, EOMI, conjunctiva normal, no discharge. [] Skin: Warm, dry, no erythema, no rash. [] Back: No tenderness, no CVA tenderness. [] Extremities: No tenderness, no cyanosis, no clubbing, ROM intact, no edema. [] EKG EKG [] Radiology/Procedures Radiology/Procedures [] Course & Med Decision Making Course & Med Decision Making Discussed findings with patient with importance of following up the dentist to determine source and cause of significant gum recession. Discussed increased stress with symptoms occurring after family members have recently moved in with patient because additional stress. Discussed patient potential for grinding teeth clenching teeth at night causing increased muscle discomfort and fatigue to her mandible. Patient does report she has been taking tramadol at home with minimal discomfort relief. Discussed use of muscle relaxants at night to decrease tension to jog this morning. Patient agreeable with plan. Patient does report she will make an appointment with a dentist in the near future. [] Dragon Disclaimer Dragon Disclaimer This electronic medical record was generated, in whole or in part, using a voice recognition dictation system. Departure Departure Impression: Primary Impression: Jaw pain, non-TMJ Additional Impression: Pain, mandibular Disposition: 01 HOME, SELF-CARE Condition: GOOD Referrals: UNKNOWN PCP NAME (PCP) Patient Instructions: Mandibular Contusion, [id number] Additional Instructions: As we discussed follow-up with Dr. Strange if he didn't have this discomfort. Also, follow up with a dentist as soon as possible to see if they can determine the cause and the treatment for gum issues. Scripts Cyclobenzaprine Hcl (CYCLOBENZAPRINE HCL) 10 Mg Tablet 10 MG PO BID for 5 Days, #10 TAB Prov: JAMA COONEY APRN 07/28/18 Problem Qualifiers JAMA COONEY APRN July 28, 2018 16:19
== END 2018-07-28 16:28 | disposition home or self-care (01) ==
LOC: ER 15:11
DX: R68.84 Jaw pain (principal); K00.7 Teething syndrome; F41.9 Anxiety disorder, unspecified
CPT/HCPCS: 99283

== ENCOUNTER → 2018-09-09 | Outpatient (CLI) | payer BC, OTHER ==
[~2018-09-09] MED LIST changes: +IBUP-1060 PO; +MULT-47 PO
[2018-09-09 16:13] LABS: BASO # 0.1 x10^3/uL (0.0-0.2); BASO % 1 % (0-3); EOS # 0.3 x10^3/uL (0.0-0.7); EOS % 4 % (0-3); HEMATOCRIT 33.9 % (36.0-47.0); HEMOGLOBIN 11.1 g/dL (12.0-15.5); LYMPH # 2.8 x10^3/uL (1.0-4.8); LYMPH % 40 % (24-48); MEAN CORPUSCULAR HEMOGLOBIN 26 pg (25-35); MEAN CORPUSCULAR HGB CONC 33 g/dL (31-37); MEAN CORPUSCULAR VOLUME 78 fL (79-100); MONO # 0.5 x10^3/uL (0.0-1.1); MONO % 7 % (0-9); NEUT # 3.4 x10^3uL (1.8-7.7); NEUT % 48 % (31-73); PLATELET COUNT 284 x10^3/uL (140-400); RED BLOOD COUNT 4.32 x10^6/uL (3.50-5.40); RED CELL DISTRIBUTION WIDTH 18.2 % (11.5-14.5)
[2018-09-09 17:07] LABS: ALBUMIN 3.8 g/dL (3.4-5.0); ALBUMIN/GLOBULIN RATIO 1.2 (1.0-1.7); CALCIUM 8.9 mg/dL (8.5-10.1); CREATININE 0.9 mg/dL (0.6-1.0); GFR 67.4; TOTAL BILIRUBIN 0.2 mg/dL (0.2-1.0); TOTAL PROTEIN 6.9 g/dL (6.4-8.2)
== END | disposition home or self-care (01) ==
LOC: SURGPAT 13:25
PROVIDERS: ATTEND Neurological Surgery
DX: Z01.818 Encounter for other preprocedural examination (principal); M71.38 Other bursal cyst, other site; M54.16 Radiculopathy, lumbar region
CPT/HCPCS: 36415; 80053; 85025; 87641

== ENCOUNTER 2018-09-22 16:43 | Emergency (ER) | payer BC, OTHER ==
[~2018-09-22] VITALS: Ht 172.7 cm; Wt 61.2 kg
[2018-09-22 16:56] VITALS: BP 122/81
[2018-09-22] MEDS ORDERED: NAPROXEN 500 MG TABLET PO STA (17:12)
[2018-09-22] MEDS ORDERED: HYDROcodone/APAP 5/325MG 1 TAB TABLET PO ONE (17:15)
[2018-09-22] MEDS ORDERED: predniSONE 10 MG TABLET PO ONE (17:15)
[2018-09-22] MEDS ORDERED: CYCLOBENZAPRINE 10 MG TABLET. PO ONE (17:15)
--- NOTE | 2018-09-22 17:34 | PHYS DOC ---
Past Medical History Past Medical History: Anxiety, Sciatica, Other Additional Past Medical Histor: SCOLIOSIS Past Surgical History: Other Additional Past Surgical Histo: CRYOTHERAPY Alcohol Use: None Drug Use: None Adult General Chief Complaint Chief Complaint: ABSCESS HPI HPI Patient is a 48 year old female with a history of sciatica who presents to the ED today complaining over 7 out of 10 left low back pain from a cyst on her spine she's had since January 2018. Patient denies any known injury. She states the pain radiates to the left lower extremity and is worse when she is lifting [id number]-old child. Patient states she is supposed to have surgery to her s pine tomorrow morning by Dr. Esquivel but they cancelled it because she lost her medical insurance. She states she presented today to see if there is anything we can do to help her get this procedure done. Patient denies any loss of bowel bladder function. Denies any saddle paresthesias. Review of Systems Review of Systems Constitutional: Denies fever or chills [] Musculoskeletal: Reports left low back pain from a cyst. Integument: Denies rash or skin lesions [] Neurologic: Denies headache, focal weakness or sensory changes [] All other systems were reviewed and found to be within normal limits, except as documented in this note. Current Medications Current Medications Current Medications Medications (Trade) Dose Ordered Sig/Nikhil Start Time Stop Time Status Last Admin Dose Admin Acetaminophen/ Hydrocodone Bitart (Lortab 5/325) 2 tab 1X ONCE 09/22/18 17:15 09/22/18 17:16 DC Cyclobenzaprine HCl (Flexeril) 10 mg 1X ONCE 09/22/18 17:15 09/22/18 17:16 DC Naproxen (Naprosyn) 500 mg 1X STAT 09/22/18 17:12 09/22/18 17:14 DC Prednisone (Prednisone) 50 mg 1X ONCE 09/22/18 17:15 09/22/18 17:16 DC Allergies Allergies Allergies Coded Allergies Type Severity Reaction Last Updated Verified No Known Drug Allergies 04/06/14 No Physical Exam Physical Exam Constitutional: Well developed, well nourished, no acute distress, non-toxic appearance. [] Abdomen: Bowel sounds normal, soft, no tenderness, no masses, no pulsatile masses. [] Skin: Warm, dry, no erythema, no rash. [] Back: Diffuse paraspinal muscle tenderness on palpation of the left lumbar spine, no midline lumbar spine tenderness, no CVA tenderness. [] Extremities: No tenderness, no cyanosis, no clubbing, ROM intact, no edema. [] Neurologic: Alert and oriented X 3, normal motor function, normal sensory function, no focal deficits noted. [] Psychologic: Affect normal, judgement normal, mood normal. [] Current Patient Data Vital Signs Vital Signs Date Time Temp Pulse Resp B/P (MAP) Pulse Ox O2 Delivery O2 Flow Rate FiO2 09/22/18 16:56 98.7 102 16 122/81 (95) 99 Room Air 98.7 EKG EKG [] Radiology/Procedures Radiology/Procedures [] Course & Med Decision Making Course & Med Decision Making Pertinent Labs and Imaging studies reviewed. (See chart for details) This is a 48-year-old female patient who presents to the ED today complaining of left low back pain from a cyst on her spine that she has had since January of last year. She is supposed to have surgery tomorrow with Dr. Esquivel of [facility] cancelled it because she lost her insurance. Patient was discharged home. Instructed to follow-up with Dr. Esquivel and see if there is anything they can do to get the procedure done, she states she has already followed up and they told her she can either pay [id number] but they are not taking any state insurance. She was discharged to home and encouraged to continue following up with Dr. Esquivel. Dragon Disclaimer Dragon Disclaimer This electronic medical record was generated, in whole or in part, using a voice recognition dictation system. Departure Departure Impression: Primary Impression: Left low back pain Disposition: 01 HOME, SELF-CARE Condition: STABLE Referrals: KARSTEN RODRIGUEZ MD (PCP) MICHELE ESQUIVEL MD Follow up in the course of this week Patient Instructions: Back Pain, Adult Additional Instructions: You were evaluated in the emergency room for back pain from a cyst. Please continue following up with Dr. Esquivel. You can also follow-up with your primary care doctor. Problem Qualifiers Primary Impression: Left low back pain Chronicity: acute Sciatica presence: with sciatica Sciatica laterality: sciatica of left side Qualified Codes: M54.42 - Lumbago with sciatica, left side RASHID PRESTON [employer] Sep 22, 2018 17:34
== END 2018-09-22 18:04 | disposition home or self-care (01) ==
LOC: ER 16:43
DX: M54.42 Lumbago with sciatica, left side (principal); F41.9 Anxiety disorder, unspecified
CPT/HCPCS: 99284; J7512

== ENCOUNTER 2019-04-06 21:35 | Emergency (ER) | payer MEDICAID ==
[~2019-04-06] VITALS: Ht 172.7 cm; Wt 145.0 kg
[2019-04-06] MEDS ORDERED: DEXAMETHASONE SOD PHOS 20 MG/5 ML VIAL. IM ONE (22:30)
[2019-04-06] MEDS ORDERED: KETOROLAC 60 MG/2 ML VIAL. IM ONE (22:30)
[2019-04-06] MEDS ORDERED: DICL50TA4 PO (22:43)
[2019-04-06] MEDS ORDERED: ORPH100T PO (22:43)
--- NOTE | 2019-04-06 22:43 | PHYS DOC ---
Past Medical History Past Medical History: Anxiety, Sciatica, Other Additional Past Medical Histor: SCOLIOSIS, CYST ON SPINE Past Surgical History: Other Additional Past Surgical Histo: CRYOTHERAPY Alcohol Use: None Drug Use: None Adult General Chief Complaint Chief Complaint: BACK PAIN - NO INJURY [facility] HPI Patient is a 48 year old female who presents with complaint of chronic lower back pain and pain into her left buttock and down the left leg. Patient states that she has a history of sciatica. She has had chronic back pain, stating that she has a bit of scoliosis as well as arthritis. She was at work when the pain came on. She states that she usually takes ibuprofen and Flexeril for pain but it is not helping. She denies any loss of bowel or bladder control. Patient states that the pain is worsened with movement. She states that nothing is improving her symptoms. Patient rates pain at a 9 out of 10.[] Review of Systems Review of Systems Constitutional: Denies fever or chills [] Respiratory: Denies cough or shortness of breath [] Cardiovascular: No additional information not addressed in HPI [] GI: Denies abdominal pain, nausea, vomiting or diarrhea [] Musculoskeletal: [place] of left lower back pain and left buttock and leg pain [] Integument: Denies rash or skin lesions [] Neurologic: Denies headache, focal weakness or sensory changes [] Current Medications Current Medications Current Medications Medications (Trade) Dose Ordered Sig/[facility] Start Time Stop Time Status Last Admin Dose Admin Dexamethasone Sodium Phosphate (Decadron) 10 mg 1X ONCE 04/06/19 22:30 04/06/19 22:31 DC 04/06/19 22:22 10 MG Ketorolac Tromethamine (Toradol Im) 60 mg 1X ONCE 04/06/19 22:30 04/06/19 22:31 DC 04/06/19 22:22 60 MG Allergies Allergies Allergies Coded Allergies Type Severity Reaction Last Updated Verified No Known Drug Allergies 04/06/14 No Physical Exam Physical Exam Constitutional: Well developed, well nourished, no acute distress, non-toxic appearance. [] Cardiovascular:Heart rate regular rhythm, no murmur [] Lungs & Thorax: Bilateral breath sounds clear to auscultation [] Abdomen: Bowel sounds normal, soft, no tenderness, no masses, no pulsatile masses. [] Skin: Warm, dry, no erythema, no rash. [] Back: There is tenderness to palpation in the left sacral sulcus and overlying the left piriformis. [] Extremities: No tenderness, no cyanosis, no clubbing, ROM intact, no edema. [] Current Patient Data Vital Signs Vital Signs Date Time Temp Pulse Resp B/P (MAP) Pulse Ox O2 Delivery O2 Flow Rate FiO2 04/06/19 22:50 88 14 119/66 (83) 98 Room Air 04/06/19 22:00 98.3 98.3 Lab Values Laboratory Tests Test 04/06/19 22:08 POC Urine HCG, Qualitative Hcg negative (Negative) EKG EKG [] Radiology/Procedures Radiology/Procedures [] Course & Med Decision Making Course & Med Decision Making Pertinent Labs and Imaging studies reviewed. (See chart for details) [] Dragon Disclaimer Dragon Disclaimer This electronic medical record was generated, in whole or in part, using a voice recognition dictation system. Departure Departure Impression: Primary Impression: Left low back pain Disposition: HOME, SELF-CARE Condition: STABLE Referrals: KARSTEN RODRIGUEZ MD (PCP) Patient Instructions: Back Pain, Adult, Sciatica Scripts Orphenadrine Citrate (ORPHENADRINE CITRATE) 100 Mg Tablet.er 1 TAB PO BID PRN for MUSCLE SPASMS, #14 TAB Prov: LYSSA WEISS Jr. DO 04/06/19 Diclofenac Sodium (DICLOFENAC SODIUM) 50 Mg Tablet.dr 1 TAB PO BID PRN for PAIN, #20 TAB Prov: LYSSA WEISS Jr. DO 04/06/19 Problem Qualifiers Primary Impression: Left low back pain Chronicity: chronic Sciatica presence: with sciatica Sciatica laterality: sciatica of left side Qualified Codes: M54.42 - Lumbago with sciatica, left side; G89.29 - Other chronic pain LYSSA WEISS Jr. DO Apr 06, 2019 22:43
[2019-04-06 22:50] VITALS: BP 119/66
== END 2019-04-06 23:00 | disposition home or self-care (01) ==
LOC: ER 21:35
DX: G89.29 Other chronic pain (principal); M54.42 Lumbago with sciatica, left side
CPT/HCPCS: 81025; 96372; 99284; J1100; J1885

== ENCOUNTER 2021-02-28 14:48 | Emergency (ER) | payer MEDICAID ==
[~2021-02-28] VITALS: Ht 172.7 cm; Wt 62.7 kg
[~2021-02-28 14:48] MED LIST changes: -CIPR500T PO; +CIPR500T2 PO; +CYCL10TA19 PO; -CYCL10TA2 PO; +DICL50TA4 PO; +METH-572 PO; -METH10TA2 PO
[2021-02-28 14:56] VITALS: BP 144/78
[2021-02-28] MEDS ORDERED: NEOMY/BACITR/POLYMYXIN OINT PACKET. TP ONE (15:15)
--- NOTE | 2021-02-28 15:27 | RAD ---
EXAM: Left forearm, 2 views; left hand, 3 views. HISTORY: Glass injury. COMPARISON: None. FINDINGS: 2 views of the left forearm and 3 views of the left hand are obtained. There is no fracture , dislocation or subluxation. There is a tiny lucency along the distal aspect of the ulnar styloid, p ossibly developmental or due to a tiny erosion. No radiodense foreign body is seen. IMPRESSION: No acute osseous finding or radiodense foreign body. Tiny lucency involving the ulnar sty loid, possibly developmental or due to a tiny erosion. Electronically signed by: America Boone MD (02/28/2021 3:24 PM) [id number]
[2021-02-28] MEDS ORDERED: DIPHTH,PERTUSS(ACELL),TET TOX 0.5 ML DISP.SYRIN. VAX IM ONE (15:45)
--- NOTE | 2021-02-28 16:02 | PHYS DOC ---
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 Patient denies any loss of consciousness, denies hitting her head on the ground. Denies any neck pain, mid or low back pain. She states that her already cleaned the lacerations and applied Neosporin to them. She states she is right-handed. Review of Systems: Review of Systems: Constitutional: Denies fever or chills. [] GI: Denies abdominal pain, nausea, vomiting, bloody stools or diarrhea. [] : Denies dysuria. [] Musculoskeletal: Denies back pain or joint pain. [] Integument: Reports left forearm and left hand laceration Neurologic: Denies headache, focal weakness or sensory changes. [] Psychiatric: Denies depression or anxiety. [] Heart Score: C/O Chest Pain: N/A Risk Factors: Risk Factors: DM, Current or recent (<one month) smoker, HTN, HLP, family history of CAD, obesity. Risk Scores: Score 0 - 3: 2.5% MACE over next 6 weeks - Discharge Home Score 4 - 6: 20.3% MACE over next 6 weeks - Admit for Clinical Observation Score 7 - 10: 72.7% MACE over next 6 weeks - Early Invasive Strategies Current Medications: Current Medications Medications (Trade) Dose Ordered Sig/Nikhil Start Time Stop Time Status Last Admin Dose Admin Neomycin/ Polymyxin/ Bacitracin (Triple Antibiotic Ointment) 1 pkt 1X ONCE 02/28/21 15:15 02/28/21 15:16 DC 02/28/21 15:30 1 PKT Allergies: Allergies: Allergies Coded Allergies Type Severity Reaction Last Updated Verified No Known Drug Allergies 04/06/14 No Physical Exam: PE: Constitutional: Well developed, well nourished, no acute distress, non-toxic appearance. [] Skin: Left forearm and left hand with no obvious deformity. Palmar aspect of th e left hand with superficial laceration on the thenar eminences roughly 1 cm long, and palmar crease roughly 1 cm long, there is a superficial laceration on the left middle finger nailbed ulnar aspect roughly 0.5 cm, no injury to the nail itself, there is another superficial laceration on the left forearm ventral aspect roughly 0.5 cm. Bleeding has completely stopped. Full range of motion to the left forearm, left hand. +2 left radial pulse. Cap refill less than 2 seconds to left fingers. Adequate radial, medial, ulnar sensation to the left hand. Back: No tenderness, no CVA tenderness. [] Extremities: No tenderness, no cyanosis, no clubbing, ROM intact, no edema. [] Neurologic: Alert and oriented X 3, normal motor function, normal sensory function, no focal deficits noted. [] Psychologic: Affect normal, judgement normal, mood normal. [] Current Patient Data: Vital Signs: Vital Signs Date Time Temp Pulse Resp B/P (MAP) Pulse Ox O2 Delivery O2 Flow Rate FiO2 02/28/21 14:56 98.3 84 10 144/78 (100) 99 98.3 EKG: EKG: [] Radiology/Procedures: Radiology/Procedures: []PROCEDURE: HAND LEFT 3V EXAM: Left forearm, 2 views; left hand, 3 views. HISTORY: Glass injury. COMPARISON: None. FINDINGS: 2 views of the left forearm and 3 views of the left hand are obtained. There is no fracture, dislocation or subluxation. There is a tiny lucency along the distal aspect of the ulnar styloid, possibly developmental or due to a tiny erosion. No radiodense foreign body is seen. IMPRESSION: No acute osseous finding or radiodense foreign body. Tiny lucency involving the ulnar styloid, possibly developmental or due to a tiny erosion. Electronically signed by: America Perez MD (02/28/2021 3:24 PM) [id number] DICTATED and SIGNED BY: AMERICA PEREZ MD DATE: 02/28/21 [id number] Course & Med Decision Making: Course & Med Decision Making Pertinent Labs and Imaging studies reviewed. (See chart for details) This is a 50-year-old female patient presenting to the ED today with lacerations to the left forearm and left hand that occurred after she fell. Left hand and left forearm x-rays interpreted by radiologist are negative for any acute findings. Tetanus was updated. Lacerations are all superficial. Neosporin applied to the laceration sites. Wound care instructions and return precautions provided to patient. Osiel Disclaimer: Drageb Disclaimer: This electronic medical record was generated, in whole or in part, using a voice recognition dictation system. Departure Departure Impression: Primary Impression: Fall from standing Qualified Codes: W19.XXXA - Unspecified fall, initial encounter Additional Impressions: Laceration of left forearm Qualified Codes: S51.812A - Laceration without foreign body of left forearm, initial encounter Laceration of left hand Qualified Codes: S61.412A - Laceration without foreign body of left hand, initial encounter Disposition: 01 HOME / SELF CARE / HOMELESS Condition: STABLE Referrals: KARSTEN RODRIGUEZ MD (PCP) follow up in one week Patient Instructions: Fall Prevention and Home Safety, Laceration Care, Adult Additional Instructions: You have lacerations to the left hand and left forearm that did not need any stitches. Your Left forearm and left hand x-rays are negative for any acute findings. Keep the laceration site clean and dry. Apply Neosporin to the areas twice a day for 7 days. 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
== END 2021-02-28 16:10 | disposition home or self-care (01) ==
LOC: ER 14:48
DX: S51.812A Laceration without foreign body of left forearm, initial encounter (principal); S61.412A Laceration without foreign body of left hand, initial encounter; F17.200 Nicotine dependence, unspecified, uncomplicated; W10.8XXA Fall (on) (from) other stairs and steps, initial encounter; Y93.89 Activity, other specified; Y92.89 Other specified places as the place of occurrence of the external cause; Y99.8 Other external cause status
CPT/HCPCS: 73090; 73130; 99284